=== PATIENT | male | born 1960 | race American Indian/Alaskan Native ===

== ENCOUNTER 2019-08-28 17:10 | Inpatient (IN) | payer BC, OTHER ==
[2019-08-28 18:16] LABS: Basophils % (Auto) 0.2 % (0.0-1.8); Eosinophils # (Auto) 0.1 K/mm3 (0.0-0.4); Eosinophils % (Auto) 0.9 % (0.0-4.3); Hematocrit 48.9 % (35.5-45.6); Hemoglobin 16.3 gm/dl (11.8-15.2); Lymphocytes # (Auto) 3.2 K/mm3 (1.2-5.4); Lymphocytes % (Auto) 30.1 % (13.4-35.0); Mean Corpuscular HGB Conc 33 % (32-34); Mean Corpuscular Volume 98 fl (84-94); Monocytes # (Auto) 1.4 K/mm3 (0.0-0.8); Monocytes % (Auto) 12.8 % (0.0-7.3); Platelet Count 190 K/mm3 (140-440); Red Blood Count 4.99 M/mm3 (3.65-5.03); Red Cell Distribution Width 12.8 % (13.2-15.2)
[2019-08-28 18:38] LABS: Albumin 4.3 g/dL (3.9-5); Calcium 9.5 mg/dL (8.4-10.2)
[2019-08-28 18:42] LABS: INR 1.15 (0.87-1.13)
[2019-08-28 18:43] LABS: Partial Thromboplastin Time 28.9 Sec. (24.2-36.6)
[2019-08-28] MEDS ORDERED: HEPARIN 10,000 UNITS/10 ML VIAL IV ONE (18:47)
--- NOTE | 2019-08-28 18:47 | Emergency Department Report ---
HPI - General Chief Complaint: Medical Clearance Time Seen by Provider: 08/28/19 17:42 - HPI HPI: Room 8 The patient is a 59-year-old male presenting with a chief complaint of shortness of breath. The patient states for the past had dyspnea on exertion. The patient saw his manager of broadcast content yesterday and turn referred the patient to a nonprofit director. This morning the patient states he became very short of breath after bending over. The patient states he then developed chest tightness. The patient went to his nonprofit director today (Dr Polo) who in turn performed an echocardiogram which showed a normal ejection fraction but a dilated right ventricle. The patient subsequent was sent to the ED to have a CT scan chest performed to rule out PE Dr. Polo states he plans on performed a cardiac catheterization in the morning. Location: [See above] Duration: [See above] Quality: [See above] Severity: [See above] Timing: [See above] Context: [See above] Modifying factors: [See above] Associated signs and symptoms: [see above] ED Past Medical Hx - Past Medical History Hx COPD: Yes Additional medical history: Sleep apnea - Surgical History Additional Surgical History: Hemorrhoidectomy, tonsilectomy, vasectomy - Family History Family history: no significant - Social History Smoking Status: Never Smoker Substance Use Type: Alcohol (occasional) ED Review of Systems ROS: Stated complaint: ABNORMAL EKG Other details as noted in HPI Constitutional: denies: fever Eyes: denies: eye pain ENT: denies: throat pain Respiratory: cough, shortness of breath, SOB with exertion Cardiovascular: chest pain Endocrine: no symptoms reported Genitourinary: denies: dysuria Musculoskeletal: denies: back pain Neurological: denies: headache Physical Exam - Physical Exam Vital Signs: Vital Signs 08/28/19 08/28/19 08/28/19 17:50 17:56 17:57 Temperature 97.7 F Pulse Rate 96 H 95 H Respiratory 29 H Rate Blood Pressure 149/99 Blood Pressure 149/99 [Right] O2 Sat by Pulse 92 98 Oximetry 08/28/19 18:25 Temperature Pulse Rate Respiratory Rate Blood Pressure Blood Pressure [Right] O2 Sat by Pulse 97 Oximetry Physical Exam: GENERAL: The patient is well-developed well-nourished male lying on stretcher not appearing to be in acute distress. [] HEENT: Normocephalic. Atraumatic. Extraocular motions are intact. Patient has moist mucous membranes. NECK: Supple. No meningitic signs are noted. There is no adenopathy noted. CHEST/LUNGS: Clear to auscultation. There is no respiratory distress noted. HEART/CARDIOVASCULAR: Regular. There is no tachycardia. There is no gallop rub or murmur. ABDOMEN: Abdomen is soft, nontender. Patient has normal bowel sounds. There is no abdominal distention. SKIN: There is no rash. There is no edema. There is no diaphoresis. NEURO: The patient is awake, alert, and oriented. The patient is cooperative. The patient has normal speech MUSCULOSKELETAL: There is no evidence of acute injury. ED Course Vital Signs 08/28/19 08/28/19 08/28/19 17:50 17:56 17:57 Temperature 97.7 F Pulse Rate 96 H 95 H Respiratory 29 H Rate Blood Pressure 149/99 Blood Pressure 149/99 [Right] O2 Sat by Pulse 92 98 Oximetry 08/28/19 18:25 Temperature Pulse Rate Respiratory Rate Blood Pressure Blood Pressure [Right] O2 Sat by Pulse 97 Oximetry ED Medical Decision Making - Lab Data Result diagrams: 08/28/19 18:06 08/28/19 18:06 Laboratory Tests 08/28/19 08/28/19 08/28/19 18:06 18:06 18:06 WBC 10.7 RBC 4.99 Hgb 16.3 H Hct 48.9 H MCV 98 H MCH 33 H MCHC 33 RDW 12.8 L Plt Count 190 Lymph % (Auto) 30.1 [place] % (Auto) 12.8 H Eos % (Auto) 0.9 Baso % (Auto) 0.2 Lymph # 3.2 [place] # 1.4 H Eos # 0.1 Baso # 0.0 Seg Neutrophils % 56.0 Seg Neutrophils # 6.0 PT 14.6 INR 1.15 H APTT 28.9 Sodium 138 Potassium 4.1 Chloride 102.0 Carbon Dioxide 22 Anion Gap 18 BUN 16 Creatinine 1.5 Estimated GFR 58 BUN/Creatinine Ratio 11 Glucose 105 H Calcium 9.5 Total Bilirubin 1.10 AST 21 ALT 21 Alkaline Phosphatase 92 Total Creatine Kinase 235 H CK-MB (CK-2) 4.0 CK-MB (CK-2) Rel Index 1.7 Troponin T 0.012 NT-Pro-B Natriuret Pep 3204 H Total Protein 8.0 Albumin 4.3 Albumin/Globulin Ratio 1.2 - EKG Data -: EKG Interpreted by Me EKG shows normal: sinus rhythm Rate: normal - EKG Data When compared to previous EKG there are: previous EKG unavailable Interpretation: nonspecific ST-T wave alessandro (T-wave inversions in leads 3 and aVF) - Differential Diagnosis ACS, CHF, PE Critical care attestation.: If time is entered above; I have spent that time in minutes in the direct care of this critically ill patient, excluding procedure time. ED Disposition Clinical Impression: Dyspnea on exertion, Bilateral pulmonary embolism Disposition: DC- OP ADMIT IP TO THIS HOSP Is pt being admited?: Yes Does the pt Need Aspirin: No Condition: Serious Time of Disposition: 19:42 (hospitalist paged (Dr Henry))
[2019-08-28] MEDS ORDERED: HEPARIN/ 0.45% NACL DRIP 25,000 UNIT/500 ML BAG IV SCH (19:00)
--- NOTE | 2019-08-28 19:42 | Cat Scan Report ---
CTA chest with contrast INDICATION : MAIN: dyspnea; 100 ML OF OMNI 350. TECHNIQUE: Axial imaging performed through the chest, with contrast bolus timing set to maximize opa cification of the pulmonary arteries. 3-plane MIP reformatted images were obtained. All CT scans at this location are performed using CT dose reduction for ALARA by means of automated exposure control. 100 mL of intravenous contrast administered. COMPARISON: None FINDINGS: Bolus: Contrast bolus timing is adequate. PTE: There is extensive thromboembolic disease in all 5 lobes of the lungs involving the segmental a nd subsegmental distribution is. There is also thrombus extension into both main pulmonary arteries. Mediastinum: There is mild flattening of the interventricular septum is slight dilatation of the rig ht ventricle suggesting pulmonary strain. Likewise there is reflux of contrast into the hepatic veins suggesting a component of systolic dysfunction. No pathologic mediastinal adenopathy. Lungs: Lungs are clear. Upper abdomen: Limited imaging of the upper abdomen shows nothing acute. Bones: Degenerative changes in the spine with nothing acute. IMPRESSION: Extensive PTE as above with evidence of heart strain. CRITICAL RESULT: Time of Discovery ([employer] ADVANCED OPERATOR MAINTAINER/CDT): 6:35 PM Time of Communication ([employer]AMARK ADVANCED OPERATOR MAINTAINER/CDT): 6:37 PM Licensed Practitioner Receiving Report: Dr. Webber Read Back Performed: Not applicable. Signer Name: Rigoberto Loza MD Signed: 08/28/2019 7:38 PM Workstation Name: [id number]
[2019-08-28] MEDS ORDERED: HYDROmorphone 1 MG/1 ML INJ IV PRN (21:31)
[2019-08-28] MEDS ORDERED: oxyCODONE /ACETAMINOPHEN 5-325MG TAB PO PRN (21:31)
[2019-08-28] MEDS ORDERED: ONDANSETRON 4 MG/2 ML INJ IV PRN (21:31)
[2019-08-28] MEDS ORDERED: ACETAMINOPHEN 325 MG TAB PO PRN (21:31)
--- NOTE | 2019-08-28 21:31 | History and Physical Report ---
History of Present Illness Date of examination: 08/28/19 Date of admission: 08/28/19 19:54 History of present illness: The patient is a 59-year-old male presenting with a chief complaint of shortness of breath. The patient states for the past had dyspnea on exertion. The patient saw his strategic procurement manager yesterday and turn referred the patient to a director of partner marketing. This morning the patient states he became very short of breath after bending over. The patient states he then developed chest tightness. The patient went to his director of partner marketing today (Dr Polo) who in turn performed an echocardiogram which showed a normal ejection fraction but a dilated right ventricle. The patient subsequent was sent to the ED to have a CT scan chest performed to rule out PE Dr. Polo states he plans on performed a cardiac catheterization in the morning. Location: [See above] Duration: [See above] Quality: [See above] Severity: [See above] Timing: [See above] Context: [See above] Modifying factors: [See above] Associated signs and symptoms: [see above] Past Medical History COPD: Yes Additional medical history: Sleep apnea Surgical History Additional Surgical History: Hemorrhoidectomy, tonsilectomy, vasectomy Family History Family history: no significant Social History Smoking Status: Never Smoker Substance Use Type: Alcohol (occasional) Review of Systems ROS: Stated complaint: ABNORMAL EKG Other details as noted in HPI Constitutional: denies: fever Eyes: denies: eye pain ENT: denies: throat pain Respiratory: cough, shortness of breath, SOB with exertion Cardiovascular: chest pain Endocrine: no symptoms reported Genitourinary: denies: dysuria Musculoskeletal: denies: back pain Neurological: denies: headache Medications and Allergies Allergies Allergy/AdvReac Type Severity Reaction Status Date / Time acetaminophen [From Percocet] Allergy Unknown Verified 08/28/19 17:22 NSAIDS (Non-Steroidal Allergy Unknown Verified 08/28/19 17:22 Anti-Inflamma oxycodone [From Percocet] Allergy Unknown Verified 08/28/19 17:22 Home Medications Medication Instructions Recorded Confirmed Last Taken Type No Known Home Medications [No 08/28/19 08/28/19 Unknown History Reported Home Medications] Active Meds: Active Medications Heparin Sodium/Sodium Chloride (Heparin/ 0.45% Nacl-25,000 Unit/500 Ml) 25,000 unit in 500 mls @ 20 mls/hr IV TITRATE CAROLYN; Protocol Last Admin: 08/28/19 20:02 Dose: 1,000 units/hr, 20 mls/hr Documented by: Exam - Constitutional Vitals: Temp Pulse Resp BP Pulse Ox 97.7 F 92 H 34 H 133/92 95 08/28/19 17:56 08/28/19 20:30 08/28/19 20:30 08/28/19 20:30 08/28/19 20:30 Results - Labs CBC & Chem 7: 08/28/19 18:06 08/28/19 18:06 Labs: Laboratory Last Values WBC 10.7 K/mm3 (4.5-11.0) 08/28/19 18:06 RBC 4.99 M/mm3 (3.65-5.03) 08/28/19 18:06 Hgb 16.3 gm/dl (11.8-15.2) H 08/28/19 18:06 Hct 48.9 % (35.5-45.6) H 08/28/19 18:06 MCV 98 fl (84-94) H 08/28/19 18:06 MCH 33 pg (28-32) H 08/28/19 18:06 MCHC 33 % (32-34) 08/28/19 18:06 RDW 12.8 % (13.2-15.2) L 08/28/19 18:06 Plt Count 190 K/mm3 (140-440) 08/28/19 18:06 Lymph % (Auto) 30.1 % (13.4-35.0) 08/28/19 18:06 [place] % (Auto) 12.8 % (0.0-7.3) H 08/28/19 18:06 Eos % (Auto) 0.9 % (0.0-4.3) 08/28/19 18:06 Baso % (Auto) 0.2 % (0.0-1.8) 08/28/19 18:06 Lymph # 3.2 K/mm3 (1.2-5.4) 08/28/19 18:06 [place] # 1.4 K/mm3 (0.0-0.8) H 08/28/19 18:06 Eos # 0.1 K/mm3 (0.0-0.4) 08/28/19 18:06 Baso # 0.0 K/mm3 (0.0-0.1) 08/28/19 18:06 Seg Neutrophils % 56.0 % (40.0-70.0) 08/28/19 18:06 Seg Neutrophils # 6.0 K/mm3 (1.8-7.7) 08/28/19 18:06 PT 14.6 Sec. (12.2-14.9) 08/28/19 18:06 INR 1.15 (0.87-1.13) H 08/28/19 18:06 APTT 28.9 Sec. (24.2-36.6) 08/28/19 18:06 Sodium 138 mmol/L (137-145) 08/28/19 18:06 Potassium 4.1 mmol/L (3.6-5.0) 08/28/19 18:06 Chloride 102.0 mmol/L (98-107) 08/28/19 18:06 Carbon Dioxide 22 mmol/L (22-30) 08/28/19 18:06 Anion Gap 18 mmol/L 08/28/19 18:06 BUN 16 mg/dL (9-20) 08/28/19 18:06 Creatinine 1.5 mg/dL (0.8-1.5) 08/28/19 18:06 Estimated GFR 58 ml/min 08/28/19 18:06 BUN/Creatinine Ratio 11 % 08/28/19 18:06 Glucose 105 mg/dL (75-100) H 08/28/19 18:06 Calcium 9.5 mg/dL (8.4-10.2) 08/28/19 18:06 Total Bilirubin 1.10 mg/dL (0.1-1.2) 08/28/19 18:06 AST 21 units/L (5-40) 08/28/19 18:06 ALT 21 units/L (7-56) 08/28/19 18:06 Alkaline Phosphatase 92 units/L (35-129) 08/28/19 18:06 Total Creatine Kinase 235 units/L (55-170) H 08/28/19 18:06 CK-MB (CK-2) 4.0 ng/mL (0.0-4.0) 08/28/19 18:06 CK-MB (CK-2) Rel Index 1.7 (0-4) 08/28/19 18:06 Troponin T 0.012 ng/mL (0.00-0.029) 08/28/19 18:06 NT-Pro-B Natriuret Pep 3204 pg/mL (0-900) H 08/28/19 18:06 Total Protein 8.0 g/dL (6.3-8.2) 08/28/19 18:06 Albumin 4.3 g/dL (3.9-5) 08/28/19 18:06 Albumin/Globulin Ratio 1.2 % 08/28/19 18:06
[2019-08-28] MEDS ORDERED: IPRATROPIUM/ALBUTEROL SULFATE 3 ML AMPUL.NEB IH PRN (21:36)
[2019-08-28 22:03] LABS: Hematocrit 47.3 % (35.5-45.6); Hemoglobin 15.8 gm/dl (11.8-15.2)
[2019-08-28] MEDS ORDERED: ALBUTEROL 2.5 MG/3 ML NEBU IH PRN (22:05)
[2019-08-28 22:15] LABS: INR 1.16 (0.87-1.13)
[2019-08-28 22:25] LABS: Partial Thromboplastin Time 81.3 Sec. (24.2-36.6)
[2019-08-28] MEDS: FAMOTIDINE 20 MG/2 ML INJ IV SCH (23:00)
[2019-08-29 02:59] LABS: Basophils % (Auto) 0.3 % (0.0-1.8); Eosinophils # (Auto) 0.2 K/mm3 (0.0-0.4); Eosinophils % (Auto) 2.2 % (0.0-4.3); Hematocrit 47.2 % (35.5-45.6); Hemoglobin 15.8 gm/dl (11.8-15.2); Lymphocytes # (Auto) 3.2 K/mm3 (1.2-5.4); Lymphocytes % (Auto) 30.3 % (13.4-35.0); Mean Corpuscular HGB Conc 34 % (32-34); Mean Corpuscular Volume 97 fl (84-94); Monocytes # (Auto) 1.3 K/mm3 (0.0-0.8); Monocytes % (Auto) 11.9 % (0.0-7.3); Platelet Count 162 K/mm3 (140-440); Red Blood Count 4.85 M/mm3 (3.65-5.03); Red Cell Distribution Width 12.8 % (13.2-15.2)
[2019-08-29 03:14] LABS: Albumin 3.9 g/dL (3.9-5); Calcium 9.3 mg/dL (8.4-10.2)
[2019-08-29] MEDS: FAMOTIDINE 20 MG/2 ML INJ IV SCH ×3 (06:09→21:12)
--- NOTE | 2019-08-29 07:03 | Event Note ---
Date: 08/28/19 See reports in H/p Acute PE COPD Sleep Apnea
--- NOTE | 2019-08-29 07:32 | History and Physical Report ---
CHIEF COMPLAINT: Shortness of breath since yesterday. HISTORY OF PRESENT ILLNESS: A 59-year-old male with history of COPD and sleep apnea, comes in for shortness of breath and dyspnea on exertion for the last 48 hours to 24 hours. The patient became very short of breath today and developed chest tightness. He went to rug cleaning supervisor who performed an echocardiogram, which showed a normal ejection fraction, but dilated right ventricle. The patient was sent to the ED to have a CTA of the chest to rule out PE. The patient is scheduled for a cardiac catheterization tomorrow morning. PAST MEDICAL HISTORY: COPD, sleep apnea. PAST SURGICAL HISTORY: Hemorrhoidectomy, tonsillectomy and vasectomy. FAMILY HISTORY: Hypertension. SOCIAL HISTORY: Does not smoke, exposure to secondhand smoking. Occasional alcohol. Worked in the [employer] for 21 years. REVIEW OF SYSTEMS: Significant for shortness of breath on minimal exertion and chest tightness. No orthopnea. No leg pains or leg swelling. Otherwise, review of systems negative. PHYSICAL EXAMINATION: GENERAL: Young elderly male, cooperative during examination. VITAL SIGNS: Temperature 98, pulse is 79, respiratory rate 25, blood pressure is 112/79, sats are 97%. HEENT: Unremarkable. Pupils equal and reactive. NECK: Supple, no lymphadenopathy, no thyromegaly. LUNGS: Clear to auscultation and percussion. Good air entry. CARDIOVASCULAR SYSTEM: S1, S2 heard. No gallop, no murmur, no rub. Apical impulse in left fifth intercostal space and midclavicular line. ABDOMEN: Soft and benign. No hepatosplenomegaly. No guarding, no rigidity. Hernial orifices are normal. EXTREMITIES: Good pedal pulses. No pedal edema. SKIN: Normal. LABORATORY DATA: Significant for white count of 10,700, H and H of 16.3 and 48.9, platelet count of 190,000. Protime of 14.6, normal electrolytes. BNP 3204. Chest CTA shows extensive pulmonary emboli with evidence of heart strain. There is mild flattening of the interventricular septum. ASSESSMENT AND PLAN: 1. Acute pulmonary embolism. The patient had a right ventricular strain. Vascular Surgery/Intervention Radiology consult requested. The patient started on IV heparin as per protocol. 2. Chronic obstructive pulmonary disease. DuoNebs p.r.n. 3. Sleep apnea, on BiPAP. 4. Deep venous thrombosis prophylaxis. The patient is already on IV heparin and gastrointestinal prophylaxis. Critical care time is 32 minutes. JOB# [id number] CAMILLA/LEANN YUAN
--- NOTE | 2019-08-29 10:10 | Consultation ---
History of Present Illness Consult date: 08/29/19 Consult reason: shortness of breath History of present illness: 59 year old male admitted from cardiology office with abnormal ECG changes, and shortness of breath. Echo done in office revealed a dilated RV. CT chest in the ER was positive for bilateral emboli. Patient denies history of VTE, recent surgery, recent travel or immobilization. Patient is currently in bed, comfortable with no complaints of SOB. Medications and Allergies Allergies Allergy/AdvReac Type Severity Reaction Status Date / Time No Known Allergies Allergy Verified 08/29/19 09:35 Home Medications Medication Instructions Recorded Confirmed Last Taken Type No Known Home Medications [No 08/28/19 08/28/19 Unknown History Reported Home Medications] Active Meds: Active Medications Acetaminophen (Tylenol) 650 mg PO Q4H PRN PRN Reason: Pain MILD(1-3)/Fever >100.5/STRAUSS Albuterol (Proventil) 2.5 mg IH Q3HRT PRN PRN Reason: Shortness Of Breath Albuterol/Ipratropium (Duoneb *Not For Prn Use*) 1 ampul IH Q3H PRN PRN Reason: Wheezing Famotidine (Pepcid) 20 mg IV BID [facility] Last Admin: 08/29/19 09:55 Dose: 20 mg Documented by: Hydromorphone HCl (Dilaudid) 0.5 mg IV Q3H PRN PRN Reason: Pain , Severe (7-10) Heparin Sodium/Sodium Chloride (Heparin/ 0.45% Nacl-25,000 Unit/500 Ml) 25,000 unit in 500 mls @ 20 mls/hr IV TITRATE CAROLYN; Protocol Last Titration: 08/29/19 09:28 Dose: 1,350 units/hr, 27 mls/hr Documented by: Ondansetron HCl (Zofran) 4 mg IV Q8H PRN PRN Reason: Nausea And Vomiting Oxycodone/Acetaminophen (Percocet 5/325) 1 tab PO Q6H PRN PRN Reason: Pain, Moderate (4-6) Sodium Chloride (Sodium Chloride Flush Syringe 10 Ml) 10 ml IV BID CAROLYN Last Admin: 08/29/19 09:55 Dose: 10 ml Documented by: Sodium Chloride (Sodium Chloride Flush Syringe 10 Ml) 10 ml IV PRN PRN PRN Reason: LINE FLUSH Review of Systems All systems: negative Physical Examination Vital Signs Pulse Ox 92 08/28/19 17:50 General appearance: no acute distress HEENT: Positive: PERRL Neck: Positive: neck supple Cardiac: Positive: Reg Rate and Rhythm Lungs: Positive: Normal Exam Results 08/29/19 02:20 08/29/19 02:20 Cardiac Enzymes 08/28/19 08/29/19 Range/Units 18:06 02:20 AST 21 17 (5-40) units/L CK-MB (CK-2) 4.0 (0.0-4.0) ng/mL Coagulation 08/28/19 08/28/19 Range/Units 18:06 21:50 PT 14.6 14.7 (12.2-14.9) Sec. INR 1.15 H 1.16 H (0.87-1.13) APTT 28.9 81.3 H* (24.2-36.6) Sec. CBC 08/28/19 08/28/19 08/29/19 Range/Units 18:06 21:50 02:20 WBC 10.7 10.7 (4.5-11.0) K/mm3 RBC 4.99 4.85 (3.65-5.03) M/mm3 Hgb 16.3 H 15.8 H 15.8 H (11.8-15.2) gm/dl Hct 48.9 H 47.3 H 47.2 H (35.5-45.6) % Plt Count 190 170 162 (140-440) K/mm3 Lymph # 3.2 3.2 (1.2-5.4) K/mm3 [place] # 1.4 H 1.3 H (0.0-0.8) K/mm3 Eos # 0.1 0.2 (0.0-0.4) K/mm3 Baso # 0.0 0.0 (0.0-0.1) K/mm3 Comprehensive Metabolic Panel 08/28/19 08/29/19 Range/Units 18:06 02:20 Sodium 138 140 (137-145) mmol/L Potassium 4.1 4.6 (3.6-5.0) mmol/L Chloride 102.0 103.2 (98-107) mmol/L Carbon Dioxide 22 22 (22-30) mmol/L BUN 16 15 (9-20) mg/dL Creatinine 1.5 1.5 (0.8-1.5) mg/dL Glucose 105 H 106 H (75-100) mg/dL Calcium 9.5 9.3 (8.4-10.2) mg/dL AST 21 17 (5-40) units/L ALT 21 16 (7-56) units/L Alkaline Phosphatase 92 83 (35-129) units/L Total Protein 8.0 7.4 (6.3-8.2) g/dL Albumin 4.3 3.9 (3.9-5) g/dL - EKG Interpretation EKG: sinus rhythm EKG interpretations - Telemetry EKG Rhythm: Sinus Rhythm Assessment and Plan Unprovoked bilateral pulmonary emboli with evidence of RV strain by CT and echo Hemodynamically stable Continue IV heparin for the time being Awaiting vascular/interventional radiology evaluation for possible need of catheter directed thrombolytics Obtain venous LE doppler to exclude DVT
[2019-08-29] MEDS ORDERED: SODIUM CHLORIDE 0.9% 1000 ML 1,000 ML EKOSCLUMEN SCH ×3 (11:00)
[2019-08-29] MEDS ORDERED: SODIUM CHLORIDE 0.9% 1000 ML 1,000 ML SHEATH SCH ×3 (11:00→12:00)
[2019-08-29] MEDS ORDERED: HEPARIN/ 0.45% NACL DRIP 25,000 UNIT/500 ML BAG SHEATH SCH ×3 (11:00)
[2019-08-29] MEDS ORDERED: SODIUM CHLORIDE 0.9% 1000 ML 1,000 ML IV SCH (11:00)
[2019-08-29 11:11] LABS: Basophils % (Auto) 0.4 % (0.0-1.8); Eosinophils # (Auto) 0.2 K/mm3 (0.0-0.4); Eosinophils % (Auto) 2.1 % (0.0-4.3); Hematocrit 46.8 % (35.5-45.6); Hemoglobin 15.7 gm/dl (11.8-15.2); Lymphocytes # (Auto) 2.7 K/mm3 (1.2-5.4); Lymphocytes % (Auto) 30.2 % (13.4-35.0); Mean Corpuscular HGB Conc 33 % (32-34); Mean Corpuscular Volume 98 fl (84-94); Monocytes # (Auto) 1.1 K/mm3 (0.0-0.8); Monocytes % (Auto) 12.9 % (0.0-7.3); Platelet Count 170 K/mm3 (140-440); Red Blood Count 4.79 M/mm3 (3.65-5.03); Red Cell Distribution Width 12.8 % (13.2-15.2)
[2019-08-29 11:22] LABS: INR 1.11 (0.87-1.13)
[2019-08-29 11:23] LABS: Partial Thromboplastin Time 50.3 Sec. (24.2-36.6)
[2019-08-29] MEDS ORDERED: HEPARIN/NS 5000 UNIT/500ML 1,000 ML IR ONE (11:28)
[2019-08-29] MEDS ORDERED: LIDOCAINE (2%) 20 MG/1 ML VIAL 20 ML MDV INFILTRATI ONE (11:28)
[2019-08-29] MEDS ORDERED: HEPARIN 10,000 UNITS/10 ML VIAL ONE (11:28)
[2019-08-29 11:33] LABS: BUN/Creatinine Ratio 10; Blood Urea Nitrogen 14 mg/dL (9-20); Calcium 9.2 mg/dL (8.4-10.2); Hemolysis Index 6
[2019-08-29] MEDS ORDERED: WATER FOR INJ Sterile (PF) 10 ML ONE (11:54)
[2019-08-29] MEDS ORDERED: MIDAZOLAM 2 MG/2 ML INJ ONE (11:54)
[2019-08-29] MEDS ORDERED: fentaNYL 100 MCG/2 ML INJ ONE (11:55)
[2019-08-29] MEDS ORDERED: ALTEPLASE 20 MG in SODIUM CHLORIDE 0.9% 500 ML 500 ML EKOSDLUMEN SCH (12:00)
[2019-08-29] MEDS ORDERED: ALTEPLASE 10 MG in SODIUM CHLORIDE 0.9% 250ML 250 ML EKOSDLUMEN SCH ×2 (12:00→12:30)
[2019-08-29] MEDS ORDERED: ALTEPLASE 2 MG INJ ONE (12:19)
[2019-08-29] MEDS ORDERED: ALTEPLASE 10 MG in SODIUM CHLORIDE 0.9% 250ML 250 ML IV SCH (12:30)
[2019-08-29] MEDS: ALTEPLASE 2 MG INJ ONE ×2 (12:44→12:45)
[2019-08-29] MEDS ORDERED: ONDANSETRON 4 MG/2 ML INJ IV PRN (12:52)
[2019-08-29] MEDS ORDERED: HYDROcodone/ACETAMINOPHEN 5-325 MG TAB PO PRN (12:52)
--- NOTE | 2019-08-29 13:11 | Consultation ---
History of Present Illness - Reason for Consult Consult date: 08/29/19 Bilateral Pulmonary Emboli With Evidence of Right Heart Strain Requesting physician: ADONIS MONTGOMERY - History of Present Illness She is a 59-year-old male who states that he began having shortness of breath approximately 3 weeks ago. He states that over the 3 weeks his shortness of breath became progressively worse. He states that his breathing made his walking distance becomes shorter and shorter. His PCP referred him to a refrigeration repair supervisor who obtained a EKG that was abnormal and therefore referred him to Dr. Polo. Upon his evaluation he was concerned for pulmonary embolus and sent him immediately to the emergency department where he underwent a CTA of his chest that confirmed bilateral pulmonary emboli. His workup also revealed a dilated right ventricle and evidence of right heart strain. My evaluation the patient is laying in bed and denies shortness of breath at rest. He denies any recent surgery or long trips. He denies a history of previous DVT or known family history of DVT. He denies a history of recent trauma, hematochezia, bright red blood per stool, recent weight loss, or coughing up any blood. He has no additional complaints at this time. Past History Past Medical History: No medical history Past Surgical History: tonsillectomy, Other (vasectomy, tonsillectomy) Social history: no significant social history Family history: no significant family history Medications and Allergies Allergies Allergy/AdvReac Type Severity Reaction Status Date / Time No Known Allergies Allergy Verified 08/29/19 09:35 Home Medications Medication Instructions Recorded Confirmed Last Taken Type No Known Home Medications [No 08/28/19 08/28/19 Unknown History Reported Home Medications] Active Meds: Active Medications Acetaminophen (Tylenol) 650 mg PO Q4H PRN PRN Reason: Pain MILD(1-3)/Fever >100.5/STRAUSS Acetaminophen/Hydrocodone Bitart ([place] 5/325) 2 each PO Q6H PRN PRN Reason: Pain, Moderate (4-6) Albuterol (Proventil) 2.5 mg IH Q3HRT PRN PRN Reason: Shortness Of Breath Famotidine (Pepcid) 20 mg IV BID CAROLYN Last Admin: 08/29/19 09:55 Dose: 20 mg Documented by: Sodium Chloride (Nacl 0.9% 1000 Ml) 1,000 mls @ 30 mls/hr IV DIRECT CAROLYN Alteplase, Recombinant 10 mg/ (Sodium Chloride) 250 mls @ 10 mls/hr EKOSDLUMEN DIRECT CAROLYN Sodium Chloride (Nacl 0.9% 1000 Ml) 1,000 mls @ 35 mls/hr EKOSCLUMEN DIRECT CAROLYN Sodium Chloride (Nacl 0.9% 1000 Ml) 1,000 mls @ 30 mls/hr SHEATH DIRECT CAROLYN Sodium Chloride (Nacl 0.9% 1000 Ml) 1,000 mls @ 35 mls/hr EKOSCLUMEN DIRECT CAROLYN Heparin Sodium/Sodium Chloride (Heparin/ 0.45% Nacl-25,000 Unit/500 Ml) 25,000 unit in 500 mls @ 10 mls/hr SHEATH DIRECT CAROLYN; Protocol Heparin Sodium/Sodium Chloride (Heparin/ 0.45% Nacl-25,000 Unit/500 Ml) 25,000 unit in 500 mls @ 10 mls/hr SHEATH DIRECT CAROLYN; Protocol Alteplase, Recombinant 10 mg/ (Sodium Chloride) 250 mls @ 10 mls/hr EKOSDLUMEN DIRECT CAROLYN Morphine Sulfate (Morphine) 4 mg IV Q4H PRN PRN Reason: Pain , Severe (7-10) Morphine Sulfate (Morphine) 2 mg IV Q4H PRN PRN Reason: Pain, Moderate (4-6) Ondansetron HCl (Zofran) 4 mg IV Q8H PRN PRN Reason: Nausea And Vomiting Sodium Chloride (Sodium Chloride Flush Syringe 10 Ml) 10 ml IV BID CAROLYN Last Admin: 08/29/19 09:55 Dose: 10 ml Documented by: Sodium Chloride (Sodium Chloride Flush Syringe 10 Ml) 10 ml IV PRN PRN PRN Reason: LINE FLUSH Review of Systems All systems: negative Exam - Constitutional Vitals: Temp Pulse Resp BP Pulse Ox 97.9 F 77 24 125/92 97 08/29/19 12:00 08/29/19 11:00 08/29/19 12:00 08/29/19 11:00 08/29/19 12:00 General appearance: Present: no acute distress - Neck Neck: Present: supple - Respiratory Respiratory effort: normal, other (nasal cannula in place) - Cardiovascular Rhythm: regular - Extremities Extremities: no ischemia, pulses intact, No edema Peripheral Pulses: within normal limits - Abdominal General gastrointestinal: Present: soft, non-tender, non-distended - Rectal Rectal Exam: deferred - Integumentary Integumentary: Present: clear - Musculoskeletal Musculoskeletal: strength equal bilaterally Results - Labs CBC & Chem 7: 08/29/19 10:45 08/29/19 10:45 Labs: Abnormal lab results 08/28/19 08/28/19 08/28/19 Range/Units 18:06 18:06 18:06 Hgb 16.3 H (11.8-15.2) gm/dl Hct 48.9 H (35.5-45.6) % MCV 98 H (84-94) fl MCH 33 H (28-32) pg RDW 12.8 L (13.2-15.2) % [place] % (Auto) 12.8 H (0.0-7.3) % [place] # 1.4 H (0.0-0.8) K/mm3 INR 1.15 H (0.87-1.13) APTT (24.2-36.6) Sec. Heparin Anti-Xa Level (0.3-0.7) U.I./ml Carbon Dioxide (22-30) mmol/L Glucose 105 H (75-100) mg/dL Total Bilirubin (0.1-1.2) mg/dL Total Creatine Kinase 235 H (55-170) units/L NT-Pro-B Natriuret Pep 3204 H (0-900) pg/mL 08/28/19 08/28/19 08/29/19 Range/Units 21:50 21:50 02:20 Hgb 15.8 H 15.8 H (11.8-15.2) gm/dl Hct 47.3 H 47.2 H (35.5-45.6) % MCV 97 H (84-94) fl MCH 33 H (28-32) pg RDW 12.8 L (13.2-15.2) % [place] % (Auto) 11.9 H (0.0-7.3) % [place] # 1.3 H (0.0-0.8) K/mm3 INR 1.16 H (0.87-1.13) APTT 81.3 H* (24.2-36.6) Sec. Heparin Anti-Xa Level (0.3-0.7) U.I./ml Carbon Dioxide (22-30) mmol/L Glucose (75-100) mg/dL Total Bilirubin (0.1-1.2) mg/dL Total Creatine Kinase (55-170) units/L NT-Pro-B Natriuret Pep (0-900) pg/mL 08/29/19 08/29/19 08/29/19 Range/Units 02:20 02:20 08:04 Hgb (11.8-15.2) gm/dl Hct (35.5-45.6) % MCV (84-94) fl MCH (28-32) pg RDW (13.2-15.2) % [place] % (Auto) (0.0-7.3) % [place] # (0.0-0.8) K/mm3 INR (0.87-1.13) APTT (24.2-36.6) Sec. Heparin Anti-Xa Level 0.20 L 0.23 L (0.3-0.7) U.I./ml Carbon Dioxide (22-30) mmol/L Glucose 106 H (75-100) mg/dL Total Bilirubin 1.50 H (0.1-1.2) mg/dL Total Creatine Kinase (55-170) units/L NT-Pro-B Natriuret Pep (0-900) pg/mL 08/29/19 08/29/19 08/29/19 Range/Units 10:45 10:45 10:45 Hgb 15.7 H (11.8-15.2) gm/dl Hct 46.8 H (35.5-45.6) % MCV 98 H (84-94) fl MCH 33 H (28-32) pg RDW 12.8 L (13.2-15.2) % [place] % (Auto) 12.9 H (0.0-7.3) % [place] # 1.1 H (0.0-0.8) K/mm3 INR (0.87-1.13) APTT 50.3 H (24.2-36.6) Sec. Heparin Anti-Xa Level (0.3-0.7) U.I./ml Carbon Dioxide 21 L (22-30) mmol/L Glucose (75-100) mg/dL Total Bilirubin (0.1-1.2) mg/dL Total Creatine Kinase (55-170) units/L NT-Pro-B Natriuret Pep (0-900) pg/mL - Imaging and Cardiology CT scan - chest: image reviewed Assessment and Plan The patient is a 59-year-old male who presented with bilateral pulmonary emboli and evidence of right heart strain. By history this appears to be an unprovoked pulmonary embolus. Given the CT scan findings in the evidence of right heart strain and no contraindication to thrombolysis the patient is a candidate for pulmonary artery thrombolysis. I have discussed the risk, benefits, and alternative procedures and he has agreed to the procedure. Additionally should have a venous duplex of his lower extremity to rule out a DVT. He should also have a hypercoagulable workup to determine the time course of his anticoagulation treatment. I discussed this with the patient as well as his . We'll proceed with placement of bilateral pulmonary artery catheters for thrombolysis.
--- NOTE | 2019-08-29 13:17 | Operative Report ---
Operative Report Operative Report: Date of Procedure: 08/29/2019 Pre-operative Diagnosis: Bilateral Pulmonary Emboli with Right Heart Strain Post-operative Diagnosis: Strain Procedure(s): 1. Ultrasound Guided Access Right Femoral Vein 2. Ultrasound Guided Access Right Femoral Vein 3. Nonselective Pulmonary Artery Arteriogram 4. Inferior Vena CavaGram 5. Placement of 106 x 12 EKOS Thrombolysis Catheter in Left Pulmonary Artery 6. Placement of 106 x 12 EKOS Thrombolysis Catheter in Right Pulmonary Artery 7. Radiologic Supervision with Interpretation Surgeon: Fan Tyler M.D. Tool And Die Supervisor: None Anesthesia: Local & Moderate Monitored Sedation EBL: Minimal Counts: Correct Complications: None Condition: Stable Specimen: None Indication: The patient is a 59-year-old male who presented to his taproom attendant with complaints of shortness of breath that progressively worsened over the past 3 weeks. He was referred to his storage consultant who suspected a pulmonary embolus and sent him to the emergency department where he had a CTA of his chest that confirmed the finding of bilateral pulmonary emboli with right heart strain. He is in need of a diagnostic pulmonary angiogram and pulmonary artery thrombolysis. He was given the risk, benefits, and alternative procedures and consented to the procedure. Angiographic Findings: The inferior venacavogram revealed a normal caliber inferior vena cava without evidence of thrombus.The nonselective pulmonary angiogram revealed bilateral nonocclusive pulmonary emboli in the right and left main pulmonary arteries. Once catheters were placed in the respective pulmonary arteries pulmonary angiograms performed through the catheters to confirm position revealed segmental pulmonary emboli bilaterally. Bilateral EKOS thrombolysis catheters were placed in adequate position without evidence of hemorrhage or pneumothorax. Description of Procedure: The patient was brought to the [facility] and laid in supine position. After a timeout was performed his bilateral groins were prepped and draped in normal sterile fashion. Ultrasound was used to identify the right common femoral vein and confirm patency. Once patency was confirmed the overlying skin and soft tissue was anesthetized with lidocaine. 2 small stab incisions were created with an 11 blade and micropuncture technique was used to access the vein twice using ultrasound guidance. Two 6 [place] sheaths were then placed by Seldinger technique. A hand injected inferior venacavogram was performed there revealed a normal caliber inferior vena cava without evidence of thrombus. A 0.035 Bentson wire and 6 [place] JR4 catheter were advanced up through the inferior vena cava and into the right atrium and right ventricle and eventually into the main pulmonary artery. The JR4 was exchanged for a pigtail catheter and a nonselective pulmonary angiogram was performed with the previously described findings. The Bentson wire was reinserted into the pigtail and then advanced into the left main pulmonary artery and out into the periphery. The pigtail catheter was removed leaving the wire in place and the EKOS thrombolysis catheter was advanced into position and an arteriogram confirmed the position as well as evidence of emboli in the segmental pulmonary arteries. I removed the wire and advanced the ultrasound wire into position. I then advanced the Bentson wire into the second 6 [place] sheath along with the JR4 catheter and advanced the wire catheter through the atrium and right ventricle into the right pulmonary artery. I removed the JR4 catheter and advanced the EKOS catheter into position. I remove the wire and performed an angiogram to confirm position. I advanced the ultrasound wire into position. I primed both coolant ports with 3000 units of heparin respectively. Both drug ports were primed with 4 mg of TPA respectively. Both 6 [place] sheath were then primed with 2000 units of heparin respectively. The sheaths and catheters were then secured to the patient with 0 silks and then dressed with sterile dressings. The patient tolerated the procedure well. All sponge, needle, and instrument counts were correct. The patient was transported to the ICU in stable condition.
--- NOTE | 2019-08-29 13:26 | Consultation ---
History of Present Illness Consult date: 08/29/19 Requesting physician: SARAH DIETZ Reason for consult: pulmonary embolism History of present illness: Patient admitted with PE, down stairs now for EKOS procedure. Found via Echo done as outpatient which showed dilated RV Medications and Allergies Allergies Allergy/AdvReac Type Severity Reaction Status Date / Time No Known Allergies Allergy Verified 08/29/19 09:35 Home Medications Medication Instructions Recorded Confirmed Last Taken Type No Known Home Medications [No 08/28/19 08/28/19 Unknown History Reported Home Medications] Active Meds: Active Medications Acetaminophen (Tylenol) 650 mg PO Q4H PRN PRN Reason: Pain MILD(1-3)/Fever >100.5/STRAUSS Acetaminophen/Hydrocodone Bitart ([place] 5/325) 2 each PO Q6H PRN PRN Reason: Pain, Moderate (4-6) Albuterol (Proventil) 2.5 mg IH Q3HRT PRN PRN Reason: Shortness Of Breath Famotidine (Pepcid) 20 mg IV BID CAROLYN Last Admin: 08/29/19 09:55 Dose: 20 mg Documented by: Sodium Chloride (Nacl 0.9% 1000 Ml) 1,000 mls @ 30 mls/hr IV DIRECT CAROLYN Alteplase, Recombinant 10 mg/ (Sodium Chloride) 250 mls @ 10 mls/hr EKOSDLUMEN DIRECT CAROLYN Sodium Chloride (Nacl 0.9% 1000 Ml) 1,000 mls @ 35 mls/hr EKOSCLUMEN DIRECT CAROLYN Sodium Chloride (Nacl 0.9% 1000 Ml) 1,000 mls @ 30 mls/hr SHEATH DIRECT CAROLYN Sodium Chloride (Nacl 0.9% 1000 Ml) 1,000 mls @ 35 mls/hr EKOSCLUMEN DIRECT CAROLYN Heparin Sodium/Sodium Chloride (Heparin/ 0.45% Nacl-25,000 Unit/500 Ml) 25,000 unit in 500 mls @ 10 mls/hr SHEATH DIRECT CAROLYN; Protocol Heparin Sodium/Sodium Chloride (Heparin/ 0.45% Nacl-25,000 Unit/500 Ml) 25,000 unit in 500 mls @ 10 mls/hr SHEATH DIRECT CAROLYN; Protocol Alteplase, Recombinant 10 mg/ (Sodium Chloride) 250 mls @ 10 mls/hr EKOSDLUMEN DIRECT CAROLYN Morphine Sulfate (Morphine) 4 mg IV Q4H PRN PRN Reason: Pain , Severe (7-10) Morphine Sulfate (Morphine) 2 mg IV Q4H PRN PRN Reason: Pain, Moderate (4-6) Ondansetron HCl (Zofran) 4 mg IV Q8H PRN PRN Reason: Nausea And Vomiting Sodium Chloride (Sodium Chloride Flush Syringe 10 Ml) 10 ml IV BID CAROLYN Last Admin: 08/29/19 09:55 Dose: 10 ml Documented by: Sodium Chloride (Sodium Chloride Flush Syringe 10 Ml) 10 ml IV PRN PRN PRN Reason: LINE FLUSH Physical Examination Vital signs: Vital Signs Pulse Ox 92 08/28/19 17:50 Results - Laboratory Findings CBC and BMP: 08/29/19 10:45 08/29/19 10:45 PT/INR, D-dimer PT 14.2 Sec. (12.2-14.9) 08/29/19 10:45 INR 1.11 (0.87-1.13) 08/29/19 10:45 Abnormal lab findings: Abnormal Labs 08/28/19 08/28/19 08/28/19 18:06 18:06 18:06 Hgb 16.3 H Hct 48.9 H MCV 98 H MCH 33 H RDW 12.8 L [place] % (Auto) 12.8 H [place] # 1.4 H INR 1.15 H APTT Heparin Anti-Xa Level Carbon Dioxide Glucose 105 H Total Bilirubin Total Creatine Kinase 235 H NT-Pro-B Natriuret Pep 3204 H 08/28/19 08/28/19 08/29/19 21:50 21:50 02:20 Hgb 15.8 H 15.8 H Hct 47.3 H 47.2 H MCV 97 H MCH 33 H RDW 12.8 L [place] % (Auto) 11.9 H [place] # 1.3 H INR 1.16 H APTT 81.3 H* Heparin Anti-Xa Level Carbon Dioxide Glucose Total Bilirubin Total Creatine Kinase NT-Pro-B Natriuret Pep 08/29/19 08/29/19 08/29/19 02:20 02:20 08:04 Hgb Hct MCV MCH RDW [place] % (Auto) [place] # INR APTT Heparin Anti-Xa Level 0.20 L 0.23 L Carbon Dioxide Glucose 106 H Total Bilirubin 1.50 H Total Creatine Kinase NT-Pro-B Natriuret Pep 08/29/19 08/29/19 08/29/19 10:45 10:45 10:45 Hgb 15.7 H Hct 46.8 H MCV 98 H MCH 33 H RDW 12.8 L [place] % (Auto) 12.9 H [place] # 1.1 H INR APTT 50.3 H Heparin Anti-Xa Level Carbon Dioxide 21 L Glucose Total Bilirubin Total Creatine Kinase NT-Pro-B Natriuret Pep
--- NOTE | 2019-08-29 13:35 | Progress Note ---
Assessment and Plan Assessment and plan: Bilateral PE with right ventricular strain - Patient is on IV heparin drip - Vascular surgery consulted and will do thrombolysis Cardiology consulted - Echo showed dilated right ventricle Disposition; continue ICU care after thrombolysis. History Interval history: Patient was seen and evaluated this morning, patient didn't have any complaints. No shortness of breath is or chest pain. Hospitalist Physical - Physical exam Narrative exam: Not in cardiopulmonary distress. The patient appeared well nourished and normally developed. Vital signs as documented. Head exam is unremarkable. No scleral icterus . Neck is without jugular venous distension, thyromegaly, or carotid bruits. Lungs are clear to auscultation. Cardiac exam reveals regular rate and Rhythm. First and second heart sounds normal. No murmurs, rubs or gallops. Abdominal exam reveals normal bowel sounds, no masses, no organomegaly and no aortic enlargement. Extremities are nonedematous and both femoral and pedal pulses are normal. ULTRASOUND MANAGER: Alert and oriented 3. No focal weakness. - Constitutional Vitals: Temp Pulse Resp BP Pulse Ox 97.9 F 77 24 125/92 97 08/29/19 12:00 08/29/19 11:00 08/29/19 12:00 08/29/19 11:00 08/29/19 12:00 General appearance: Present: no acute distress Results - Labs CBC & Chem 7: 08/29/19 10:45 08/29/19 10:45 Labs: Laboratory Last Values WBC 8.9 K/mm3 (4.5-11.0) 08/29/19 10:45 RBC 4.79 M/mm3 (3.65-5.03) 08/29/19 10:45 Hgb 15.7 gm/dl (11.8-15.2) H 08/29/19 10:45 Hct 46.8 % (35.5-45.6) H 08/29/19 10:45 MCV 98 fl (84-94) H 08/29/19 10:45 MCH 33 pg (28-32) H 08/29/19 10:45 MCHC 33 % (32-34) 08/29/19 10:45 RDW 12.8 % (13.2-15.2) L 08/29/19 10:45 Plt Count 170 K/mm3 (140-440) 08/29/19 10:45 Lymph % (Auto) 30.2 % (13.4-35.0) 08/29/19 10:45 [place] % (Auto) 12.9 % (0.0-7.3) H 08/29/19 10:45 Eos % (Auto) 2.1 % (0.0-4.3) 08/29/19 10:45 Baso % (Auto) 0.4 % (0.0-1.8) 08/29/19 10:45 Lymph # 2.7 K/mm3 (1.2-5.4) 08/29/19 10:45 [place] # 1.1 K/mm3 (0.0-0.8) H 08/29/19 10:45 Eos # 0.2 K/mm3 (0.0-0.4) 08/29/19 10:45 Baso # 0.0 K/mm3 (0.0-0.1) 08/29/19 10:45 Seg Neutrophils % 54.4 % (40.0-70.0) 08/29/19 10:45 Seg Neutrophils # 4.8 K/mm3 (1.8-7.7) 08/29/19 10:45 PT 14.2 Sec. (12.2-14.9) 08/29/19 10:45 INR 1.11 (0.87-1.13) 08/29/19 10:45 APTT 50.3 Sec. (24.2-36.6) H 08/29/19 10:45 Fibrinogen 340 mg/dl (211-480) 08/29/19 10:45 Heparin Anti-Xa Level 0.23 U.I./ml (0.3-0.7) L 08/29/19 08:04 Sodium 138 mmol/L (137-145) 08/29/19 10:45 Potassium 4.7 mmol/L (3.6-5.0) 08/29/19 10:45 Chloride 102.9 mmol/L (98-107) 08/29/19 10:45 Carbon Dioxide 21 mmol/L (22-30) L 08/29/19 10:45 Anion Gap 19 mmol/L 08/29/19 10:45 BUN 14 mg/dL (9-20) 08/29/19 10:45 Creatinine 1.4 mg/dL (0.8-1.5) 08/29/19 10:45 Estimated GFR > 60 ml/min 08/29/19 10:45 BUN/Creatinine Ratio 10 % 08/29/19 10:45 Glucose 99 mg/dL (75-100) 08/29/19 10:45 Hemoglobin A1c 5.2 % (4-6) 08/28/19 21:50 Calcium 9.2 mg/dL (8.4-10.2) 08/29/19 10:45 Total Bilirubin 1.50 mg/dL (0.1-1.2) H 08/29/19 02:20 AST 17 units/L (5-40) 08/29/19 02:20 ALT 16 units/L (7-56) 08/29/19 02:20 Alkaline Phosphatase 83 units/L (35-129) 08/29/19 02:20 Total Creatine Kinase 235 units/L (55-170) H 08/28/19 18:06 CK-MB (CK-2) 4.0 ng/mL (0.0-4.0) 08/28/19 18:06 CK-MB (CK-2) Rel Index 1.7 (0-4) 08/28/19 18:06 Troponin T 0.012 ng/mL (0.00-0.029) 08/28/19 18:06 NT-Pro-B Natriuret Pep 3204 pg/mL (0-900) H 08/28/19 18:06 Total Protein 7.4 g/dL (6.3-8.2) 08/29/19 02:20 Albumin 3.9 g/dL (3.9-5) 08/29/19 02:20 Albumin/Globulin Ratio 1.1 % 08/29/19 02:20 Active Medications - Current Medications Current Medications: Generic Name Dose Route Start Last Admin Trade Name Freq PRN Reason Stop Dose Admin Acetaminophen 650 mg 08/28/19 21:31 Tylenol PO Q4H PRN Pain MILD(1-3)/Fever >100.5/STRAUSS Acetaminophen/Hydrocodone Bitart 2 each 08/29/19 12:52 [place] 5/325 PO Q6H PRN Pain, Moderate (4-6) Albuterol 2.5 mg 08/28/19 22:05 Proventil IH Q3HRT PRN Shortness Of Breath Famotidine 20 mg 08/28/19 22:00 08/29/19 09:55 Pepcid IV 20 mg BID CAROLYN Administration Sodium Chloride 1,000 mls @ 30 mls/hr 08/29/19 11:00 Nacl 0.9% 1000 Ml IV DIRECT CAROLYN Alteplase, Recombinant 10 mg/ 250 mls @ 10 mls/hr 08/29/19 12:00 Sodium Chloride EKOSDLUMEN DIRECT CAROLYN Sodium Chloride 1,000 mls @ 35 mls/hr 08/29/19 11:00 Nacl 0.9% 1000 Ml EKOSCLUMEN DIRECT CAROLYN Sodium Chloride 1,000 mls @ 30 mls/hr 08/29/19 11:00 Nacl 0.9% 1000 Ml SHEATH DIRECT CAROLYN Sodium Chloride 1,000 mls @ 35 mls/hr 08/29/19 11:00 Nacl 0.9% 1000 Ml EKOSCLUMEN DIRECT CAROLYN Heparin Sodium/Sodium Chloride 25,000 unit in 500 mls @ 10 mls/hr 08/29/19 11:00 Heparin/ 0.45% Nacl-25,000 Unit/500 Ml SHEATH DIRECT CAROLYN Protocol 500 UNITS/HR Heparin Sodium/Sodium Chloride 25,000 unit in 500 mls @ 10 mls/hr 08/29/19 11:00 Heparin/ 0.45% Nacl-25,000 Unit/500 Ml SHEATH DIRECT [facility] Protocol 500 UNITS/HR Alteplase, Recombinant 10 mg/ 250 mls @ 10 mls/hr 08/29/19 12:30 Sodium Chloride EKOSDLUMEN DIRECT CAROLYN Morphine Sulfate 4 mg 08/29/19 12:52 Morphine IV Q4H PRN Pain , Severe (7-10) Morphine Sulfate 2 mg 08/29/19 12:52 Morphine IV Q4H PRN Pain, Moderate (4-6) Ondansetron HCl 4 mg 08/29/19 12:52 Zofran IV Q8H PRN Nausea And Vomiting Sodium Chloride 10 ml 08/28/19 22:00 08/29/19 09:55 Sodium Chloride Flush Syringe 10 Ml IV 10 ml BID CAROLYN Administration Sodium Chloride 10 ml 08/28/19 21:31 Sodium Chloride Flush Syringe 10 Ml IV PRN PRN LINE FLUSH
[2019-08-29 19:34] LABS: Basophils % (Auto) 0.3 % (0.0-1.8); Eosinophils # (Auto) 0.2 K/mm3 (0.0-0.4); Eosinophils % (Auto) 1.7 % (0.0-4.3); Hematocrit 46.4 % (35.5-45.6); Hemoglobin 15.8 gm/dl (11.8-15.2); Lymphocytes # (Auto) 2.5 K/mm3 (1.2-5.4); Lymphocytes % (Auto) 26.5 % (13.4-35.0); Mean Corpuscular HGB Conc 34 % (32-34); Mean Corpuscular Volume 98 fl (84-94); Platelet Count 187 K/mm3 (140-440); Red Blood Count 4.73 M/mm3 (3.65-5.03); Red Cell Distribution Width 12.8 % (13.2-15.2)
[2019-08-30 00:53] LABS: Basophils % (Auto) 0.5 % (0.0-1.8); Eosinophils # (Auto) 0.2 K/mm3 (0.0-0.4); Eosinophils % (Auto) 2.8 % (0.0-4.3); Hematocrit 44.1 % (35.5-45.6); Hemoglobin 14.9 gm/dl (11.8-15.2); Lymphocytes # (Auto) 2.9 K/mm3 (1.2-5.4); Lymphocytes % (Auto) 36.5 % (13.4-35.0); Mean Corpuscular HGB Conc 34 % (32-34); Mean Corpuscular Volume 97 fl (84-94); Monocytes # (Auto) 1.1 K/mm3 (0.0-0.8); Monocytes % (Auto) 13.6 % (0.0-7.3); Platelet Count 157 K/mm3 (140-440); Red Blood Count 4.53 M/mm3 (3.65-5.03)
[2019-08-30] MEDS: MORPHINE 2 MG/1 ML INJ IV PRN ×3 (04:00→15:56)
[2019-08-30 06:04] LABS: Basophils % (Auto) 0.5 % (0.0-1.8); Eosinophils # (Auto) 0.2 K/mm3 (0.0-0.4); Hematocrit 43.7 % (35.5-45.6); Hemoglobin 14.9 gm/dl (11.8-15.2); Lymphocytes # (Auto) 2.5 K/mm3 (1.2-5.4); Lymphocytes % (Auto) 30.6 % (13.4-35.0); Mean Corpuscular HGB Conc 34 % (32-34); Mean Corpuscular Volume 97 fl (84-94); Monocytes % (Auto) 12.4 % (0.0-7.3); Platelet Count 148 K/mm3 (140-440); Red Blood Count 4.51 M/mm3 (3.65-5.03); Red Cell Distribution Width 12.8 % (13.2-15.2)
[2019-08-30 06:27] LABS: Calcium 8.6 mg/dL (8.4-10.2)
[2019-08-30] MEDS ORDERED: SODIUM CHLORIDE 0.9% 500 ML 500 ML ONE (08:18)
[2019-08-30] MEDS: FAMOTIDINE 20 MG/2 ML INJ IV SCH ×2 (10:25→21:41)
--- NOTE | 2019-08-30 10:27 | Progress Note ---
Assessment and Plan Patient will be brought down for removal of thrombolytics catheter. Following 2 hours of recovery, the patient will need to be ambulated with assistance to determine if there are additional oxygen requirements. He will need to be placed on anticoagulation for a minimum of 6 months and then follow up in our clinic in 2 weeks. Subjective Date of service: 08/30/19 Principal diagnosis: Sub-massive pulmonary embolism Interval history: Patient with a history of sub-massive pulmonary embolism with right heart strain who underwent placement of thrombolytics catheters yesterday. On examination today, the patient is breathing comfortably and satting 95-98% on 2 L by nasal cannula. No complaints of chest pain. He does complain of some back and leg pain secondary to being immobilized. His heart rate is in the 70s. Objective - Constitutional Vitals: Vital Signs - 12hr 08/29/19 08/29/19 08/30/19 23:00 23:33 00:00 Temperature 98.2 F Pulse Rate 72 70 Respiratory 21 26 H Rate Blood Pressure 115/82 108/58 O2 Sat by Pulse 96 93 Oximetry 08/30/19 08/30/19 08/30/19 00:53 01:00 02:00 Temperature Pulse Rate 72 69 70 Respiratory 14 19 Rate Blood Pressure 125/81 126/88 O2 Sat by Pulse 97 97 Oximetry 08/30/19 08/30/19 08/30/19 03:00 04:00 05:00 Temperature 98.5 F Pulse Rate 69 69 65 Respiratory 20 18 18 Rate Blood Pressure 129/88 130/85 127/83 O2 Sat by Pulse 97 97 96 Oximetry 08/30/19 08/30/19 08/30/19 06:00 07:00 08:00 Temperature 97.9 F Pulse Rate 65 65 66 Respiratory 15 16 17 Rate Blood Pressure 125/75 126/80 132/86 O2 Sat by Pulse 97 96 95 Oximetry General appearance: Present: no acute distress - EENT Eyes: EOM intact ENT: hearing intact - Neck Neck: supple, normal ROM - Respiratory Respiratory effort: normal - Cardiovascular Rhythm: regular - Gastrointestinal General gastrointestinal: Present: deferred Rectal Exam: deferred - Genitourinary Male genitourinary: deferred - Psychiatric Psychiatric: appropriate mood/affect, cooperative - Labs CBC & Chem 7: 08/30/19 05:46 08/30/19 05:46 Labs: Abnormal lab results 08/29/19 08/29/19 08/29/19 Range/Units 10:45 10:45 10:45 Hgb 15.7 H (11.8-15.2) gm/dl Hct 46.8 H (35.5-45.6) % MCV 98 H (84-94) fl MCH 33 H (28-32) pg RDW 12.8 L (13.2-15.2) % Lymph % (Auto) (13.4-35.0) % [place] % (Auto) 12.9 H (0.0-7.3) % [place] # 1.1 H (0.0-0.8) K/mm3 APTT 50.3 H (24.2-36.6) Sec. Heparin Anti-Xa Level (0.3-0.7) U.I./ml Sodium (137-145) mmol/L Carbon Dioxide 21 L (22-30) mmol/L Glucose (75-100) mg/dL 08/29/19 08/30/19 08/30/19 Range/Units 18:42 00:33 00:33 Hgb 15.8 H (11.8-15.2) gm/dl Hct 46.4 H (35.5-45.6) % MCV 98 H 97 H (84-94) fl MCH 33 H 33 H (28-32) pg RDW 12.8 L 13.0 L (13.2-15.2) % Lymph % (Auto) 36.5 H (13.4-35.0) % [place] % (Auto) 11.0 H 13.6 H (0.0-7.3) % [place] # 1.0 H 1.1 H (0.0-0.8) K/mm3 APTT (24.2-36.6) Sec. Heparin Anti-Xa Level 0.21 L (0.3-0.7) U.I./ml Sodium (137-145) mmol/L Carbon Dioxide (22-30) mmol/L Glucose (75-100) mg/dL 08/30/19 08/30/19 08/30/19 Range/Units 05:46 05:46 05:46 Hgb (11.8-15.2) gm/dl Hct (35.5-45.6) % MCV 97 H (84-94) fl MCH 33 H (28-32) pg RDW 12.8 L (13.2-15.2) % Lymph % (Auto) (13.4-35.0) % [place] % (Auto) 12.4 H (0.0-7.3) % [place] # 1.0 H (0.0-0.8) K/mm3 APTT (24.2-36.6) Sec. Heparin Anti-Xa Level 0.24 L (0.3-0.7) U.I./ml Sodium 136 L (137-145) mmol/L Carbon Dioxide (22-30) mmol/L Glucose 104 H (75-100) mg/dL Medications & Allergies - Medications Allergies/Adverse Reactions: Allergies No Known Allergies Allergy (Verified 08/29/19 09:35) Home Medications: Home Medications Medication Instructions Recorded Confirmed Last Taken Type No Known Home Medications [No 08/28/19 08/28/19 Unknown History Reported Home Medications] Active Medications: Generic Name Dose Route Start Last Admin Trade Name David PRN Reason Stop Dose Admin Acetaminophen 650 mg 08/28/19 21:31 Tylenol PO Q4H PRN Pain MILD(1-3)/Fever >100.5/STRAUSS Acetaminophen/Hydrocodone Bitart 2 each 08/29/19 12:52 [place] 5/325 PO Q6H PRN Pain, Moderate (4-6) Albuterol 2.5 mg 08/28/19 22:05 Proventil IH Q3HRT PRN Shortness Of Breath Famotidine 20 mg 08/28/19 22:00 08/29/19 21:12 Pepcid IV 20 mg BID CAROLYN Administration Sodium Chloride 1,000 mls @ 30 mls/hr 08/29/19 11:00 Nacl 0.9% 1000 Ml IV DIRECT CAROLYN Alteplase, Recombinant 10 mg/ 250 mls @ 10 mls/hr 08/29/19 12:00 08/29/19 13:55 Sodium Chloride EKOSDLUMEN 10 mls DIRECT CAROLYN Administration Sodium Chloride 1,000 mls @ 35 mls/hr 08/29/19 11:00 08/29/19 13:55 Nacl 0.9% 1000 Ml EKOSCLUMEN 35 mls DIRECT CAROLYN Administration Sodium Chloride 1,000 mls @ 30 mls/hr 08/29/19 11:00 Nacl 0.9% 1000 Ml SHEATH DIRECT CAROLYN Sodium Chloride 1,000 mls @ 35 mls/hr 08/29/19 11:00 08/29/19 13:55 Nacl 0.9% 1000 Ml EKOSCLUMEN 35 mls DIRECT CAROLYN Administration Heparin Sodium/Sodium Chloride 25,000 unit in 500 mls @ 10 mls/hr 08/29/19 11:00 08/29/19 13:55 Heparin/ 0.45% Nacl-25,000 Unit/500 Ml SHEATH 10 mls DIRECT CAROLYN Administration Protocol 500 UNITS/HR Heparin Sodium/Sodium Chloride 25,000 unit in 500 mls @ 10 mls/hr 08/29/19 11:00 08/29/19 13:55 Heparin/ 0.45% Nacl-25,000 Unit/500 Ml SHEATH 10 mls DIRECT CAROLYN Administration Protocol 500 UNITS/HR Alteplase, Recombinant 10 mg/ 250 mls @ 10 mls/hr 08/29/19 12:30 08/29/19 13:55 Sodium Chloride EKOSDLUMEN 10 mls DIRECT CAROLYN Administration Morphine Sulfate 4 mg 08/29/19 12:52 Morphine IV Q4H PRN Pain , Severe (7-10) Morphine Sulfate 2 mg 08/29/19 12:52 08/30/19 08:00 Morphine IV 2 mg Q4H PRN Administration Pain, Moderate (4-6) Ondansetron HCl 4 mg 08/29/19 12:52 Zofran IV Q8H PRN Nausea And Vomiting Sodium Chloride 10 ml 08/28/19 22:00 08/29/19 21:12 Sodium Chloride Flush Syringe 10 Ml IV 10 ml BID CAROLYN Administration Sodium Chloride 10 ml 08/28/19 21:31 Sodium Chloride Flush Syringe 10 Ml IV PRN PRN LINE FLUSH
--- NOTE | 2019-08-30 11:52 | Progress Note ---
Assessment and Plan 59 y/o male with submassive PE 1. reviewed IR note and agree with their assessment and recs. Would also suggest that he see hematology for further work up of hypercoaguable state to help understand etiology 2. Should be stable for transfer to floor after recovery time post EKOS removal. Subjective Date of service: 08/30/19 Principal diagnosis: Sub-massive pulmonary embolism Interval history: Down for EKOS catheter removal Objective Vital Signs - 12hr 08/30/19 08/30/19 08/30/19 00:00 00:53 01:00 Temperature Pulse Rate 70 72 69 Respiratory 26 H 14 Rate Blood Pressure 108/58 125/81 O2 Sat by Pulse 93 97 Oximetry 08/30/19 08/30/19 08/30/19 02:00 03:00 04:00 Temperature 98.5 F Pulse Rate 70 69 69 Respiratory 19 20 18 Rate Blood Pressure 126/88 129/88 130/85 O2 Sat by Pulse 97 97 97 Oximetry 08/30/19 08/30/19 08/30/19 05:00 06:00 07:00 Temperature Pulse Rate 65 65 65 Respiratory 18 15 16 Rate Blood Pressure 127/83 125/75 126/80 O2 Sat by Pulse 96 97 96 Oximetry 08/30/19 08/30/19 08/30/19 08:00 09:00 10:00 Temperature 97.9 F Pulse Rate 66 66 69 Respiratory 17 18 18 Rate Blood Pressure 132/86 126/84 137/84 O2 Sat by Pulse 95 97 94 Oximetry 08/30/19 11:00 Temperature Pulse Rate 69 Respiratory 10 L Rate Blood Pressure 116/89 O2 Sat by Pulse 97 Oximetry CBC and BMP: 08/30/19 05:46 08/30/19 05:46 ABG, PT/INR, D-dimer: PT/INR, D-dimer PT 14.2 Sec. (12.2-14.9) 08/29/19 10:45 INR 1.11 (0.87-1.13) 08/29/19 10:45 Abnormal lab findings: Abnormal Labs 08/28/19 08/28/19 08/28/19 18:06 18:06 18:06 Hgb 16.3 H Hct 48.9 H MCV 98 H MCH 33 H RDW 12.8 L Lymph % (Auto) [place] % (Auto) 12.8 H [place] # 1.4 H INR 1.15 H APTT Heparin Anti-Xa Level Sodium Carbon Dioxide Glucose 105 H Total Bilirubin Total Creatine Kinase 235 H NT-Pro-B Natriuret Pep 3204 H 08/28/19 08/28/19 08/29/19 21:50 21:50 02:20 Hgb 15.8 H 15.8 H Hct 47.3 H 47.2 H MCV 97 H MCH 33 H RDW 12.8 L Lymph % (Auto) [place] % (Auto) 11.9 H [place] # 1.3 H INR 1.16 H APTT 81.3 H* Heparin Anti-Xa Level Sodium Carbon Dioxide Glucose Total Bilirubin Total Creatine Kinase NT-Pro-B Natriuret Pep 08/29/19 08/29/19 08/29/19 02:20 02:20 08:04 Hgb Hct MCV MCH RDW Lymph % (Auto) [place] % (Auto) [place] # INR APTT Heparin Anti-Xa Level 0.20 L 0.23 L Sodium Carbon Dioxide Glucose 106 H Total Bilirubin 1.50 H Total Creatine Kinase NT-Pro-B Natriuret Pep 08/29/19 08/29/19 08/29/19 10:45 10:45 10:45 Hgb 15.7 H Hct 46.8 H MCV 98 H MCH 33 H RDW 12.8 L Lymph % (Auto) [place] % (Auto) 12.9 H [place] # 1.1 H INR APTT 50.3 H Heparin Anti-Xa Level Sodium Carbon Dioxide 21 L Glucose Total Bilirubin Total Creatine Kinase NT-Pro-B Natriuret Pep 08/29/19 08/30/19 08/30/19 18:42 00:33 00:33 Hgb 15.8 H Hct 46.4 H MCV 98 H 97 H MCH 33 H 33 H RDW 12.8 L 13.0 L Lymph % (Auto) 36.5 H [place] % (Auto) 11.0 H 13.6 H [place] # 1.0 H 1.1 H INR APTT Heparin Anti-Xa Level 0.21 L Sodium Carbon Dioxide Glucose Total Bilirubin Total Creatine Kinase NT-Pro-B Natriuret Pep 08/30/19 08/30/19 08/30/19 05:46 05:46 05:46 Hgb Hct MCV 97 H MCH 33 H RDW 12.8 L Lymph % (Auto) [place] % (Auto) 12.4 H [place] # 1.0 H INR APTT Heparin Anti-Xa Level 0.24 L Sodium 136 L Carbon Dioxide Glucose 104 H Total Bilirubin Total Creatine Kinase NT-Pro-B Natriuret Pep
[2019-08-30] MEDS ORDERED: HEPARIN 10,000 UNITS/10 ML VIAL ONE (11:55)
[2019-08-30] MEDS ORDERED: HEPARIN/NS 5000 UNIT/500ML 500 ML IR ONE (11:55)
[2019-08-30] MEDS ORDERED: SODIUM CHLORIDE 0.9% 250ML 250 ML ONE (11:56)
--- NOTE | 2019-08-30 11:59 | Progress Note ---
Assessment and Plan - Patient Problems (1) Bilateral pulmonary embolism Current Visit: Yes Status: Acute Plan to address problem: bilateral pulmonary emboli s/p EKOS on IV heparin evidence of RV strain; normal LVEF by echo Subjective Date of service: 08/30/19 Principal diagnosis: Sub-massive pulmonary embolism Interval history: EKOS catheters are in place. Patient denies chest pain and shortness of breath. Objective Vital Signs Temp Pulse Resp BP Pulse Ox 08/30/19 11:00 69 10 L 116/89 97 08/30/19 10:00 69 18 137/84 94 08/30/19 09:00 66 18 126/84 97 08/30/19 08:00 97.9 F 66 17 132/86 95 08/30/19 07:00 65 16 126/80 96 08/30/19 06:00 65 15 125/75 97 08/30/19 05:00 65 18 127/83 96 08/30/19 04:00 98.5 F 69 18 130/85 97 08/30/19 03:00 69 20 129/88 97 08/30/19 02:00 70 19 126/88 97 08/30/19 01:00 69 14 125/81 97 08/30/19 00:53 72 08/30/19 00:00 70 26 H 108/58 93 08/29/19 23:33 98.2 F 08/29/19 23:00 72 21 115/82 96 08/29/19 22:00 77 22 122/89 97 08/29/19 21:00 77 25 H 128/86 97 08/29/19 20:04 79 21 124/84 98 08/29/19 20:00 97.9 F 80 21 124/84 98 08/29/19 19:00 85 18 123/88 97 08/29/19 18:00 87 16 131/92 93 08/29/19 17:30 21 114/93 94 08/29/19 17:00 77 22 117/90 96 08/29/19 16:30 22 116/86 96 08/29/19 16:00 98.2 F 81 19 134/84 96 08/29/19 15:30 18 128/94 96 08/29/19 15:00 82 28 H 136/96 95 08/29/19 14:45 23 144/94 95 08/29/19 14:30 20 137/90 94 08/29/19 14:15 20 139/92 94 08/29/19 14:00 80 17 128/98 95 08/29/19 13:23 134/101 93 08/29/19 12:00 97.9 F 78 24 97 - Physical Examination General: No Apparent Distress HEENT: Positive: PERRL Neck: Positive: trachea midline Cardiac: Positive: Reg Rate and Rhythm Lungs: Positive: Decreased Breath Sounds - Labs and Meds CBC 08/29/19 08/30/19 08/30/19 Range/Units 18:42 00:33 05:46 WBC 9.3 7.9 8.1 (4.5-11.0) K/mm3 RBC 4.73 4.53 4.51 (3.65-5.03) M/mm3 Hgb 15.8 H 14.9 14.9 (11.8-15.2) gm/dl Hct 46.4 H 44.1 43.7 (35.5-45.6) % Plt Count 187 157 148 (140-440) K/mm3 Lymph # 2.5 2.9 2.5 (1.2-5.4) K/mm3 [place] # 1.0 H 1.1 H 1.0 H (0.0-0.8) K/mm3 Eos # 0.2 0.2 0.2 (0.0-0.4) K/mm3 Baso # 0.0 0.0 0.0 (0.0-0.1) K/mm3 Comprehensive Metabolic Panel 08/30/19 Range/Units 05:46 Sodium 136 L (137-145) mmol/L Potassium 4.7 (3.6-5.0) mmol/L Chloride 102.3 (98-107) mmol/L Carbon Dioxide 23 (22-30) mmol/L BUN 11 (9-20) mg/dL Creatinine 1.5 (0.8-1.5) mg/dL Glucose 104 H (75-100) mg/dL Calcium 8.6 (8.4-10.2) mg/dL
--- NOTE | 2019-08-30 12:10 | Progress Note ---
Assessment and Plan Assessment and plan: Bilateral PE with right ventricular strain - Patient is on IV heparin drip - Vascular surgery consulted and did thrombolytics yesterday, catheter removed today - We'll change to eliquis at discharge Cardiology consulted - Echo showed dilated right ventricle, Disposition; possible DC to the floor if stable. History Interval history: Patient was seen and evaluated this morning, patient didn't have any complaints. No shortness of breath is or chest pain. patient is status post thrombolytics. Hospitalist Physical - Physical exam Narrative exam: Not in cardiopulmonary distress. The patient appeared well nourished and normally developed. Vital signs as documented. Head exam is unremarkable. No scleral icterus . Neck is without jugular venous distension, thyromegaly, or carotid bruits. Lungs are clear to auscultation. Cardiac exam reveals regular rate and Rhythm. First and second heart sounds normal. No murmurs, rubs or gallops. Abdominal exam reveals normal bowel sounds, no masses, no organomegaly and no aortic enlargement. Extremities are nonedematous and both femoral and pedal pulses are normal. TEMPERATURE CONTROL INSPECTOR: Alert and oriented 3. No focal weakness. - Constitutional Vitals: Temp Pulse Resp BP Pulse Ox 97.9 F 69 10 L 116/89 97 08/30/19 08:00 08/30/19 11:00 08/30/19 11:00 08/30/19 11:00 08/30/19 11:00 General appearance: Present: no acute distress Results - Labs CBC & Chem 7: 08/30/19 05:46 08/30/19 05:46 Labs: Laboratory Last Values WBC 8.1 K/mm3 (4.5-11.0) 08/30/19 05:46 RBC 4.51 M/mm3 (3.65-5.03) 08/30/19 05:46 Hgb 14.9 gm/dl (11.8-15.2) 08/30/19 05:46 Hct 43.7 % (35.5-45.6) 08/30/19 05:46 MCV 97 fl (84-94) H 08/30/19 05:46 MCH 33 pg (28-32) H 08/30/19 05:46 MCHC 34 % (32-34) 08/30/19 05:46 RDW 12.8 % (13.2-15.2) L 08/30/19 05:46 Plt Count 148 K/mm3 (140-440) 08/30/19 05:46 Lymph % (Auto) 30.6 % (13.4-35.0) 08/30/19 05:46 [place] % (Auto) 12.4 % (0.0-7.3) H 08/30/19 05:46 Eos % (Auto) 3.0 % (0.0-4.3) 08/30/19 05:46 Baso % (Auto) 0.5 % (0.0-1.8) 08/30/19 05:46 Lymph # 2.5 K/mm3 (1.2-5.4) 08/30/19 05:46 [place] # 1.0 K/mm3 (0.0-0.8) H 08/30/19 05:46 Eos # 0.2 K/mm3 (0.0-0.4) 08/30/19 05:46 Baso # 0.0 K/mm3 (0.0-0.1) 08/30/19 05:46 Seg Neutrophils % 53.5 % (40.0-70.0) 08/30/19 05:46 Seg Neutrophils # 4.3 K/mm3 (1.8-7.7) 08/30/19 05:46 PT 14.2 Sec. (12.2-14.9) 08/29/19 10:45 INR 1.11 (0.87-1.13) 08/29/19 10:45 APTT 50.3 Sec. (24.2-36.6) H 08/29/19 10:45 Fibrinogen 350 mg/dl (211-480) 08/30/19 05:46 Heparin Anti-Xa Level 0.24 U.I./ml (0.3-0.7) L 08/30/19 05:46 Sodium 136 mmol/L (137-145) L 08/30/19 05:46 Potassium 4.7 mmol/L (3.6-5.0) 08/30/19 05:46 Chloride 102.3 mmol/L (98-107) 08/30/19 05:46 Carbon Dioxide 23 mmol/L (22-30) 08/30/19 05:46 Anion Gap 15 mmol/L 08/30/19 05:46 BUN 11 mg/dL (9-20) 08/30/19 05:46 Creatinine 1.5 mg/dL (0.8-1.5) 08/30/19 05:46 Estimated GFR 58 ml/min 08/30/19 05:46 BUN/Creatinine Ratio 7 % 08/30/19 05:46 Glucose 104 mg/dL (75-100) H 08/30/19 05:46 Hemoglobin A1c 5.2 % (4-6) 08/28/19 21:50 Calcium 8.6 mg/dL (8.4-10.2) 08/30/19 05:46 Total Bilirubin 1.50 mg/dL (0.1-1.2) H 08/29/19 02:20 AST 17 units/L (5-40) 08/29/19 02:20 ALT 16 units/L (7-56) 08/29/19 02:20 Alkaline Phosphatase 83 units/L (35-129) 08/29/19 02:20 Total Creatine Kinase 235 units/L (55-170) H 08/28/19 18:06 CK-MB (CK-2) 4.0 ng/mL (0.0-4.0) 08/28/19 18:06 CK-MB (CK-2) Rel Index 1.7 (0-4) 08/28/19 18:06 Troponin T 0.012 ng/mL (0.00-0.029) 08/28/19 18:06 NT-Pro-B Natriuret Pep 3204 pg/mL (0-900) H 08/28/19 18:06 Total Protein 7.4 g/dL (6.3-8.2) 08/29/19 02:20 Albumin 3.9 g/dL (3.9-5) 08/29/19 02:20 Albumin/Globulin Ratio 1.1 % 08/29/19 02:20 Active Medications - Current Medications Current Medications: Generic Name Dose Route Start Last Admin Trade Name Freq PRN Reason Stop Dose Admin Acetaminophen 650 mg 08/28/19 21:31 Tylenol PO Q4H PRN Pain MILD(1-3)/Fever >100.5/STRAUSS Acetaminophen/Hydrocodone Bitart 2 each 08/29/19 12:52 [place] 5/325 PO Q6H PRN Pain, Moderate (4-6) Albuterol 2.5 mg 08/28/19 22:05 Proventil IH Q3HRT PRN Shortness Of Breath Famotidine 20 mg 08/28/19 22:00 08/29/19 21:12 Pepcid IV 20 mg BID CAROLYN Administration Sodium Chloride 1,000 mls @ 30 mls/hr 08/29/19 11:00 Nacl 0.9% 1000 Ml IV DIRECT CAROLYN Alteplase, Recombinant 10 mg/ 250 mls @ 10 mls/hr 08/29/19 12:00 08/29/19 13:55 Sodium Chloride EKOSDLUMEN 10 mls DIRECT CAROLYN Administration Sodium Chloride 1,000 mls @ 35 mls/hr 08/29/19 11:00 08/29/19 13:55 Nacl 0.9% 1000 Ml EKOSCLUMEN 35 mls DIRECT CAROLYN Administration Sodium Chloride 1,000 mls @ 30 mls/hr 08/29/19 11:00 Nacl 0.9% 1000 Ml SHEATH DIRECT CAROLYN Sodium Chloride 1,000 mls @ 35 mls/hr 08/29/19 11:00 08/29/19 13:55 Nacl 0.9% 1000 Ml EKOSCLUMEN 35 mls DIRECT CAROLYN Administration Heparin Sodium/Sodium Chloride 25,000 unit in 500 mls @ 10 mls/hr 08/29/19 11:00 08/29/19 13:55 Heparin/ 0.45% Nacl-25,000 Unit/500 Ml SHEATH 10 mls DIRECT CAROLYN Administration Protocol 500 UNITS/HR Heparin Sodium/Sodium Chloride 25,000 unit in 500 mls @ 10 mls/hr 08/29/19 11:00 08/29/19 13:55 Heparin/ 0.45% Nacl-25,000 Unit/500 Ml SHEATH 10 mls DIRECT CAROLYN Administration Protocol 500 UNITS/HR Alteplase, Recombinant 10 mg/ 250 mls @ 10 mls/hr 08/29/19 12:30 08/29/19 13:55 Sodium Chloride EKOSDLUMEN 10 mls DIRECT CAROLYN Administration Morphine Sulfate 4 mg 08/29/19 12:52 Morphine IV Q4H PRN Pain , Severe (7-10) Morphine Sulfate 2 mg 08/29/19 12:52 08/30/19 08:00 Morphine IV 2 mg Q4H PRN Administration Pain, Moderate (4-6) Ondansetron HCl 4 mg 08/29/19 12:52 Zofran IV Q8H PRN Nausea And Vomiting Sodium Chloride 10 ml 08/28/19 22:00 08/29/19 21:12 Sodium Chloride Flush Syringe 10 Ml IV 10 ml BID CAROLYN Administration Sodium Chloride 10 ml 08/28/19 21:31 Sodium Chloride Flush Syringe 10 Ml IV PRN PRN LINE FLUSH
[2019-08-30] MEDS: MIDAZOLAM 2 MG/2 ML INJ ONE ×2 (12:18→12:20)
[2019-08-30] MEDS: fentaNYL 100 MCG/2 ML INJ ONE ×2 (12:18→12:20)
[2019-08-30] MEDS: LIDOCAINE 1%/EPINEPHRINE 1:100,000 VIAL (20 ML) INFILTRATI ONE ×2 (12:18→19:44)
--- NOTE | 2019-08-30 12:48 | Post Operative Note ---
Pre-op diagnosis: Symptomatic Pulmonary Embolus Post-op diagnosis: same Findings: Angiogram of the Left Lower Lobe, Left Main Pulmonary Artery, Right Lower Lobe and Right Main Pulmonary Artery were patent and did not demonstrate any evidence of residual significant thrombus burden Procedure: Diagnostic Pulmonary Angiogram Anesthesia: MAC, local Surgeon: VERONIKA ADAN Estimated blood loss: minimal Pathology: none Condition: stable Disposition: ICU
[2019-08-30] MEDS ORDERED: APIXABAN 5 MG TAB PO SCH (15:00)
--- NOTE | 2019-08-30 15:01 | Vascular Lab Report ---
DUPLEX DOPPLER LOWER EXTREMITY VEINS, BILATERAL INDICATION: Bilateral PEs. TECHNIQUE: Duplex doppler imaging was performed through the veins of both lower extremities using ve nous compression and other maneuvers. COMPARISON: No relevant prior imaging study available. FINDINGS: Right Common femoral vein: Negative. Right Superficial femoral vein: Negative. Right Popliteal vein: Positive. Right Calf veins: Positive in the proximal posterior tibial vein. Left Common femoral vein: Negative. Left Superficial femoral vein: Positive in the distal femoral vein. Left Popliteal vein: Positive. Left Calf veins: Negative. Additional findings: None.. IMPRESSION: Positive for bilateral lower extremity DVTs as described. Signer Name: Moustapha Swain Jr, MD Signed: 08/30/2019 2:57 PM Workstation Name: [id number]
--- NOTE | 2019-08-30 15:25 | Operative Report ---
PREOPERATIVE DIAGNOSIS: Symptomatic pulmonary embolism. POSTOPERATIVE DIAGNOSIS: Symptomatic pulmonary embolism. PROCEDURE PERFORMED: Diagnostic pulmonary angiogram. COMPLICATIONS: None. ESTIMATED BLOOD LOSS: Less than 10 mL. ANESTHESIA: Local MAC. ANGIOGRAPHIC FINDINGS: Angiogram of the left lower lobe, left main, pulmonary artery, right lower lobe and the right main pulmonary arteries were all found to be patent and did not demonstrate any evidence of residual significant thrombus burden. INDICATIONS FOR PROCEDURE: This is a 59-year-old gentleman who is currently hospitalized due to symptomatic pulmonary embolism, who had EKOS catheters placed and is being brought back for a repeat diagnostic angiogram for any evidence of residual burden. The patient was explained the risks, benefits and alternatives of procedure, expressed understanding and wished to proceed. DESCRIPTION OF PROCEDURE: After appropriate consent was obtained, the patient was brought back to the clinical lab technologist, placed on table in supine position. The right groin was prepped and draped in the usual sterile fashion. Appropriate timeout was performed indicating the correct patient, procedure, and site of the procedure. We then began the intervention by first removing the infusion catheter on the right and then diagnostic imaging through the EKOS catheter was then performed at the left lower and left main pulmonary arteries, which demonstrated the findings noted above. With that, the catheter was then subsequently removed. The infusion catheter was then removed on the left and again diagnostic angiogram was then performed through the EKOS catheter at the left lower and main pulmonary artery again demonstrating findings noted above. With that, the catheter was also removed. Both 6-Dutch sheaths were subsequently removed and digital compression was held at the access site for hemostasis. A pressure dressing was placed. Once we were satisfied with hemostasis, the patient tolerated the procedure well, emerged from the conscious sedation and was sent to recovery in stable condition. JOB# [id number] EVY/LEANN YUAN
[2019-08-30 15:28] LABS: Hematocrit 45.7 % (35.5-45.6); Hemoglobin 15.3 gm/dl (11.8-15.2)
[2019-08-30 15:46] LABS: INR 1.02 (0.87-1.13)
[2019-08-30 15:52] LABS: Partial Thromboplastin Time 39.5 Sec. (24.2-36.6)
[2019-08-30] MEDS: APIXABAN 5 MG TAB PO SCH (21:41)
[2019-08-30] MEDS: MORPHINE 4 MG/1 ML INJ IV PRN (21:42)
[2019-08-31] MEDS: MORPHINE 4 MG/1 ML INJ IV PRN (03:58)
[2019-08-31 04:54] LABS: Basophils % (Auto) 0.5 % (0.0-1.8); Eosinophils # (Auto) 0.3 K/mm3 (0.0-0.4); Eosinophils % (Auto) 4.4 % (0.0-4.3); Hematocrit 42.6 % (35.5-45.6); Hemoglobin 14.4 gm/dl (11.8-15.2); Lymphocytes # (Auto) 2.3 K/mm3 (1.2-5.4); Lymphocytes % (Auto) 33.8 % (13.4-35.0); Mean Corpuscular HGB Conc 34 % (32-34); Mean Corpuscular Volume 97 fl (84-94); Monocytes # (Auto) 0.9 K/mm3 (0.0-0.8); Monocytes % (Auto) 13.5 % (0.0-7.3); Platelet Count 158 K/mm3 (140-440); Red Cell Distribution Width 12.3 % (13.2-15.2)
[2019-08-31 05:04] LABS: BUN/Creatinine Ratio 9; Blood Urea Nitrogen 11 mg/dL (9-20); Calcium 8.8 mg/dL (8.4-10.2); Hemolysis Index 8
--- NOTE | 2019-08-31 07:03 | XRay Report ---
ABDOMEN 1 VIEW INDICATION / CLINICAL INFORMATION: abd pain. COMPARISON: None available. FINDINGS: TUBES / LINES: None. BOWEL GAS PATTERN: No significant abnormality. FREE AIR / EXTRALUMINAL GAS: None seen. ADDITIONAL FINDINGS: No significant additional findings. IMPRESSION: 1. No significant abnormality. Signer Name: Jojo Lama MD Signed: 08/31/2019 6:58 AM Workstation Name: [id number]
--- NOTE | 2019-08-31 08:41 | Progress Note ---
Assessment and Plan Patient clinically improving following thrombolytic therapy for his pulmonary embolism. He subsequently developed back pain attributable to immobilization for 24 hours and also left lower quadrant focal abdominal pain. We will obtain a CT of the abdomen and pelvis. The patient is noted on ultrasound to have bilateral lower leg DVTs, unable to elicit a scenario for the DVTs were provoked. The patient will need to undergo a hypercoagulable workup either as an inpatient or outpatient. He will need to remain on anticoagulation for at least 6 months with repeat imaging of his legs prior to discontinuation of his anticoagulation. Subjective Date of service: 08/31/19 Principal diagnosis: Sub-massive pulmonary embolism Interval history: Patient resting comfortably in bed. He is not yet ambulated however, we will later this morning. Overnight, the patient complained of focal left lower quadrant abdominal pain. Abdominal x-ray was performed which was unremarkable. Labs were drawn and his hemoglobin is stable since admission. Ultrasound reports noted and patient has bilateral DVTs predominantly involving his lower leg. Objective - Constitutional Vitals: Vital Signs - 12hr 08/30/19 08/30/19 08/30/19 21:00 22:00 23:00 Temperature Pulse Rate 67 68 66 Respiratory 24 24 10 L Rate Blood Pressure 140/84 141/97 155/92 O2 Sat by Pulse 96 98 98 Oximetry 08/30/19 08/30/19 08/31/19 23:20 23:34 00:00 Temperature 97.9 F Pulse Rate 67 64 Respiratory 22 19 Rate Blood Pressure 155/92 146/92 O2 Sat by Pulse 97 96 Oximetry 08/31/19 08/31/19 08/31/19 01:00 02:06 03:00 Temperature Pulse Rate 61 66 58 L Respiratory 18 17 10 L Rate Blood Pressure 148/108 144/78 O2 Sat by Pulse 98 98 98 Oximetry 08/31/19 08/31/19 08/31/19 04:00 05:00 06:00 Temperature 97.9 F Pulse Rate 61 56 L 61 Respiratory 14 16 17 Rate Blood Pressure 154/100 158/98 148/90 O2 Sat by Pulse 96 95 99 Oximetry General appearance: Present: no acute distress - EENT Eyes: EOM intact ENT: hearing intact - Neck Neck: supple, normal ROM - Respiratory Respiratory effort: normal - Breasts Breasts: deferred - Cardiovascular Rhythm: regular - Gastrointestinal General gastrointestinal: Present: soft Rectal Exam: deferred - Genitourinary Male genitourinary: deferred - Psychiatric Psychiatric: appropriate mood/affect, cooperative - Labs CBC & Chem 7: 08/31/19 04:38 08/31/19 04:38 Labs: Abnormal lab results 08/30/19 08/30/19 08/30/19 Range/Units 14:51 14:51 18:40 Hgb 15.3 H (11.8-15.2) gm/dl Hct 45.7 H (35.5-45.6) % MCV (84-94) fl MCH (28-32) pg RDW (13.2-15.2) % [place] % (Auto) (0.0-7.3) % Eos % (Auto) (0.0-4.3) % [place] # (0.0-0.8) K/mm3 APTT 39.5 H (24.2-36.6) Sec. Heparin Anti-Xa Level < 0.10 L (0.3-0.7) U.I./ml Sodium (137-145) mmol/L Glucose (75-100) mg/dL 08/31/19 08/31/19 Range/Units 04:38 04:38 Hgb (11.8-15.2) gm/dl Hct (35.5-45.6) % MCV 97 H (84-94) fl MCH 33 H (28-32) pg RDW 12.3 L (13.2-15.2) % [place] % (Auto) 13.5 H (0.0-7.3) % Eos % (Auto) 4.4 H (0.0-4.3) % [place] # 0.9 H (0.0-0.8) K/mm3 APTT (24.2-36.6) Sec. Heparin Anti-Xa Level (0.3-0.7) U.I./ml Sodium 135 L (137-145) mmol/L Glucose 102 H (75-100) mg/dL Medications & Allergies - Medications Allergies/Adverse Reactions: Allergies No Known Allergies Allergy (Verified 08/29/19 09:35) Home Medications: Home Medications Medication Instructions Recorded Confirmed Last Taken Type No Known Home Medications [No 08/28/19 08/28/19 Unknown History Reported Home Medications] Active Medications: Generic Name Dose Route Start Last Admin Trade Name Freq PRN Reason Stop Dose Admin Acetaminophen 650 mg 08/28/19 21:31 Tylenol PO Q4H PRN Pain MILD(1-3)/Fever >100.5/STRAUSS Acetaminophen/Hydrocodone Bitart 2 each 08/29/19 12:52 [place] 5/325 PO Q6H PRN Pain, Moderate (4-6) Albuterol 2.5 mg 08/28/19 22:05 Proventil IH Q3HRT PRN Shortness Of Breath Apixaban 10 mg 08/30/19 22:00 08/30/19 21:41 Eliquis PO 09/06/19 21:59 10 mg Q12HR CAROLYN Administration Protocol Famotidine 20 mg 08/28/19 22:00 08/30/19 21:41 Pepcid IV 20 mg BID CAROLYN Administration Sodium Chloride 1,000 mls @ 30 mls/hr 08/29/19 11:00 Nacl 0.9% 1000 Ml IV DIRECT CAROLYN Morphine Sulfate 4 mg 08/29/19 12:52 08/31/19 03:58 Morphine IV 4 mg Q4H PRN Administration Pain , Severe (7-10) Morphine Sulfate 2 mg 08/29/19 12:52 08/30/19 15:56 Morphine IV 2 mg Q4H PRN Administration Pain, Moderate (4-6) Ondansetron HCl 4 mg 08/29/19 12:52 Zofran IV Q8H PRN Nausea And Vomiting Sodium Chloride 10 ml 08/28/19 22:00 08/30/19 21:42 Sodium Chloride Flush Syringe 10 Ml IV 10 ml BID CAROLYN Administration Sodium Chloride 10 ml 08/28/19 21:31 Sodium Chloride Flush Syringe 10 Ml IV PRN PRN LINE FLUSH
--- NOTE | 2019-08-31 09:37 | Progress Note ---
Assessment and Plan Bilateral pulmonary emboli and DVT s/p EKOS initiated on Eliquis evidence of RV strain; normal LVEF by echo Conservative cardiac management. Subjective Date of service: 08/31/19 Principal diagnosis: Sub-massive pulmonary embolism Interval history: No cardiac complaints. Objective Vital Signs Temp Pulse Resp BP Pulse Ox 08/31/19 09:04 95 08/31/19 08:00 97.8 F 08/31/19 06:00 61 17 148/90 99 08/31/19 05:00 56 L 16 158/98 95 08/31/19 04:00 97.9 F 61 14 154/100 96 08/31/19 03:00 58 L 10 L 144/78 98 08/31/19 02:06 66 17 98 08/31/19 01:00 61 18 148/108 98 08/31/19 00:00 64 19 146/92 96 08/30/19 23:34 97.9 F 08/30/19 23:20 67 22 155/92 97 08/30/19 23:00 66 10 L 155/92 98 08/30/19 22:00 68 24 141/97 98 08/30/19 21:00 67 24 140/84 96 08/30/19 20:00 97.9 F 65 20 159/96 94 08/30/19 19:00 63 21 150/93 96 08/30/19 18:00 76 25 H 143/92 93 08/30/19 17:00 75 23 148/95 96 08/30/19 16:00 97 F L 75 18 119/94 94 08/30/19 15:00 66 15 149/95 92 08/30/19 14:00 67 21 143/91 96 08/30/19 13:10 64 131/82 08/30/19 11:30 95 08/30/19 11:00 69 10 L 116/89 97 08/30/19 10:00 69 18 137/84 94 - Physical Examination General: No Apparent Distress HEENT: Positive: PERRL Neck: Positive: trachea midline Cardiac: Positive: Reg Rate and Rhythm Lungs: Positive: Decreased Breath Sounds Neuro: Positive: Grossly Intact - Labs and Meds Coagulation 08/30/19 Range/Units 14:51 PT 13.3 (12.2-14.9) Sec. INR 1.02 (0.87-1.13) APTT 39.5 H (24.2-36.6) Sec. CBC 08/30/19 08/31/19 Range/Units 14:51 04:38 WBC 6.7 (4.5-11.0) K/mm3 RBC 4.40 (3.65-5.03) M/mm3 Hgb 15.3 H 14.4 (11.8-15.2) gm/dl Hct 45.7 H 42.6 (35.5-45.6) % Plt Count 143 158 (140-440) K/mm3 Lymph # 2.3 (1.2-5.4) K/mm3 [place] # 0.9 H (0.0-0.8) K/mm3 Eos # 0.3 (0.0-0.4) K/mm3 Baso # 0.0 (0.0-0.1) K/mm3 Comprehensive Metabolic Panel 08/31/19 Range/Units 04:38 Sodium 135 L (137-145) mmol/L Potassium 4.5 (3.6-5.0) mmol/L Chloride 100.6 (98-107) mmol/L Carbon Dioxide 23 (22-30) mmol/L BUN 11 (9-20) mg/dL Creatinine 1.2 (0.8-1.5) mg/dL Glucose 102 H (75-100) mg/dL Calcium 8.8 (8.4-10.2) mg/dL
[2019-08-31] MEDS: FAMOTIDINE 20 MG TAB PO SCH ×2 (09:46→21:51)
[2019-08-31] MEDS: APIXABAN 5 MG TAB PO SCH ×2 (09:46→21:52)
--- NOTE | 2019-08-31 11:36 | Event Note ---
Date: 08/31/19 [id number]
--- NOTE | 2019-08-31 12:52 | Consultation ---
REFERRING PHYSICIAN: Dr. Estevez. REASON FOR CONSULTATION: DVT, legs and PE. HISTORY OF PRESENT ILLNESS: I saw this patient, a 59-year-old male in the medical floor. The patient came to the hospital on 08/28/2019. He was admitted from Cardiology office because of abnormal EKG and shortness of breath. Echo in the office had shown dilated right ventricle. After admission, he was found to have bilateral PE on CT chest. The report mentions that it was extensive in all 5 lobes of the lung and extension into both main pulmonary arteries. The patient was also found to have leg DVT on Doppler of both the legs. The patient says that he never had previous DVT or PE. No family history of DVT or PE. The patient denies any travel. No new medications. The patient underwent procedure by the vascular team. I have been asked to evaluate the patient in view of this. At this time, no headache, no visual disturbances, no ear discharge. Chest pain is better. Breathing is better. The patient is on oxygen. No abdominal pain, no vomiting, no diarrhea, no dysuria. The patient has been changed from heparin to Eliquis. PAST SURGICAL HISTORY: Tonsil surgery. SOCIAL HISTORY: Nonsmoker. FAMILY HISTORY: Noncontributory. ALLERGIES: None. PRESENT MEDICATIONS: Includes Eliquis, Tylenol, pain medications, Pepcid, morphine, and Zofran. PHYSICAL EXAMINATION: VITAL SIGNS: Temperature 97.8, pulse 60, respirations 18, BP 148/93. HEENT: No pallor, no icterus. NECK: No neck lymph nodes. HEART: S1, S2. LUNGS: Clear to auscultation. ABDOMEN: Soft. EXTREMITIES: Leg edema present. NEUROLOGIC: Alert, awake, oriented. LABORATORY DATA: White cells 6, hemoglobin 14, MCV 97, platelet 158. Potassium 4.5, creatinine 1.2, and calcium 8.8. RADIOLOGY: As above. ASSESSMENT: 1. Bilateral leg deep venous thrombosis. 2. Bilateral pulmonary embolism with cardiac changes. PLAN: The patient underwent thrombolysis by vascular team. The patient has been changed from heparin to Eliquis. The patient did not have any precipitating factors for DVT or PE. It is surprising. I will follow the patient during inpatient stay and then in the clinic setting. He would need long-term anticoagulation. I discussed with Dr. Estevez regarding the patient. The patient is on oxygen at this time. JOB# [id number] HAJA/LEANN
--- NOTE | 2019-08-31 14:05 | Cat Scan Report ---
CT ABDOMEN AND PELVIS WITH CONTRAST HISTORY: abdominal pain COMPARISON: None. TECHNIQUE: Axial CT images were obtained through the abdomen and pelvis after 100 cc of Omnipaque 300 intravenously. Sagittal and coronal reformatted images. All CT scans at this location are performed using CT dose reduction for ALARA by means of automated exposure control. FINDINGS: CT ABDOMEN: Lung Bases: Clear. Liver: No significant abnormality. Biliary: There is layering dense material in the gallbladder which could represent sludge or tiny sto shama. 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 Spleen: No significant abnormality. Unenlarged. Pancreas: No significant abnormality. Adrenals: No significant abnormality. Kidneys: No significant abnormality. Lymphatics: No lymphadenopathy. Vasculature: No significant abnormality. Bowel/Peritoneum: No significant abnormality. No free air. No free fluid. Normal appendix. CT PELVIS: : The prostate gland is mildly enlarged measuring 6.2 cm in diameter. The bladder and distal ureter s are unremarkable. Osseous Structures: Thoracolumbar spondylosis. No fracture or suspicious bony lesion. Additional Findings: There is nonspecific skin subcutaneous induration in the right groin region whic h probably represents a catheterization site. No fluid collection or pseudoaneurysm. IMPRESSION: No acute inflammatory process is identified. Sludge in the gallbladder versus vicarious excretion of contrast agent. See above. Mildly enlarged prostate gland. Signer Name: Moustapha Swain Jr, MD Signed: 08/31/2019 2:00 PM Workstation Name: [id number]
--- NOTE | 2019-08-31 14:15 | Progress Note ---
Assessment and Plan Assessment and plan: Bilateral PE with right ventricular strain - Patient was on IV heparin drip, currently on eliquis - Vascular surgery consulted and did thrombolytics, catheter removed - Hematology oncology consulted and doesn't need further workup Cardiology consulted - Echo showed dilated right ventricle Abdominal pain - will get CT with contrast - pain control Disposition; transfer to the floor. History Interval history: Patient was seen and evaluated this morning. No shortness of breath is or chest pain. patient is status post thrombolytics. patient is c/o SOB. Hospitalist Physical - Physical exam Narrative exam: Not in cardiopulmonary distress. The patient appeared well nourished and normally developed. Vital signs as documented. Head exam is unremarkable. No scleral icterus . Neck is without jugular venous distension, thyromegaly, or carotid bruits. Lungs are clear to auscultation. Cardiac exam reveals regular rate and Rhythm. First and second heart sounds normal. No murmurs, rubs or gallops. Abdominal exam reveals normal bowel sounds, no masses, no organomegaly and no aortic enlargement. Extremities are nonedematous and both femoral and pedal pulses are normal. DEPARTMENT MGR: Alert and oriented 3. No focal weakness. - Constitutional Vitals: Temp Pulse Resp BP Pulse Ox 98.0 F 72 12 174/108 86 08/31/19 12:00 08/31/19 13:00 08/31/19 13:00 08/31/19 13:00 08/31/19 13:00 General appearance: Present: no acute distress Results - Labs CBC & Chem 7: 08/31/19 04:38 08/31/19 04:38 Labs: Laboratory Last Values WBC 6.7 K/mm3 (4.5-11.0) 08/31/19 04:38 RBC 4.40 M/mm3 (3.65-5.03) 08/31/19 04:38 Hgb 14.4 gm/dl (11.8-15.2) 08/31/19 04:38 Hct 42.6 % (35.5-45.6) 08/31/19 04:38 MCV 97 fl (84-94) H 08/31/19 04:38 MCH 33 pg (28-32) H 08/31/19 04:38 MCHC 34 % (32-34) 08/31/19 04:38 RDW 12.3 % (13.2-15.2) L 08/31/19 04:38 Plt Count 158 K/mm3 (140-440) 08/31/19 04:38 Lymph % (Auto) 33.8 % (13.4-35.0) 08/31/19 04:38 [place] % (Auto) 13.5 % (0.0-7.3) H 08/31/19 04:38 Eos % (Auto) 4.4 % (0.0-4.3) H 08/31/19 04:38 Baso % (Auto) 0.5 % (0.0-1.8) 08/31/19 04:38 Lymph # 2.3 K/mm3 (1.2-5.4) 08/31/19 04:38 [place] # 0.9 K/mm3 (0.0-0.8) H 08/31/19 04:38 Eos # 0.3 K/mm3 (0.0-0.4) 08/31/19 04:38 Baso # 0.0 K/mm3 (0.0-0.1) 08/31/19 04:38 Seg Neutrophils % 47.8 % (40.0-70.0) 08/31/19 04:38 Seg Neutrophils # 3.2 K/mm3 (1.8-7.7) 08/31/19 04:38 PT 13.3 Sec. (12.2-14.9) 08/30/19 14:51 INR 1.02 (0.87-1.13) 08/30/19 14:51 APTT 39.5 Sec. (24.2-36.6) H 08/30/19 14:51 Fibrinogen 350 mg/dl (211-480) 08/30/19 05:46 Heparin Anti-Xa Level < 0.10 U.I./ml (0.3-0.7) L 08/30/19 18:40 Sodium 135 mmol/L (137-145) L 08/31/19 04:38 Potassium 4.5 mmol/L (3.6-5.0) 08/31/19 04:38 Chloride 100.6 mmol/L (98-107) 08/31/19 04:38 Carbon Dioxide 23 mmol/L (22-30) 08/31/19 04:38 Anion Gap 16 mmol/L 08/31/19 04:38 BUN 11 mg/dL (9-20) 08/31/19 04:38 Creatinine 1.2 mg/dL (0.8-1.5) 08/31/19 04:38 Estimated GFR > 60 ml/min 08/31/19 04:38 BUN/Creatinine Ratio 9 % 08/31/19 04:38 Glucose 102 mg/dL (75-100) H 08/31/19 04:38 Hemoglobin A1c 5.2 % (4-6) 08/28/19 21:50 Calcium 8.8 mg/dL (8.4-10.2) 08/31/19 04:38 Total Bilirubin 1.50 mg/dL (0.1-1.2) H 08/29/19 02:20 AST 17 units/L (5-40) 08/29/19 02:20 ALT 16 units/L (7-56) 08/29/19 02:20 Alkaline Phosphatase 83 units/L (35-129) 08/29/19 02:20 Total Creatine Kinase 235 units/L (55-170) H 08/28/19 18:06 CK-MB (CK-2) 4.0 ng/mL (0.0-4.0) 08/28/19 18:06 CK-MB (CK-2) Rel Index 1.7 (0-4) 08/28/19 18:06 Troponin T 0.012 ng/mL (0.00-0.029) 08/28/19 18:06 NT-Pro-B Natriuret Pep 3204 pg/mL (0-900) H 08/28/19 18:06 Total Protein 7.4 g/dL (6.3-8.2) 08/29/19 02:20 Albumin 3.9 g/dL (3.9-5) 08/29/19 02:20 Albumin/Globulin Ratio 1.1 % 08/29/19 02:20 Active Medications - Current Medications Current Medications: Generic Name Dose Route Start Last Admin Trade Name Freq PRN Reason Stop Dose Admin Acetaminophen 650 mg 08/28/19 21:31 Tylenol PO Q4H PRN Pain MILD(1-3)/Fever >100.5/STRAUSS Acetaminophen/Hydrocodone Bitart 2 each 08/29/19 12:52 [place] 5/325 PO Q6H PRN Pain, Moderate (4-6) Albuterol 2.5 mg 08/28/19 22:05 Proventil IH Q3HRT PRN Shortness Of Breath Apixaban 10 mg 08/30/19 22:00 08/31/19 09:46 Eliquis PO 09/06/19 21:59 10 mg Q12HR CAROLYN Administration Protocol Apixaban 5 mg 09/07/19 10:00 Eliquis PO Q12HR CAROLYN Protocol Famotidine 20 mg 08/31/19 10:00 08/31/19 09:46 Pepcid PO 20 mg BID CAROLYN Administration Morphine Sulfate 4 mg 08/29/19 12:52 08/31/19 03:58 Morphine IV 4 mg Q4H PRN Administration Pain , Severe (7-10) Morphine Sulfate 2 mg 08/29/19 12:52 08/30/19 15:56 Morphine IV 2 mg Q4H PRN Administration Pain, Moderate (4-6) Ondansetron HCl 4 mg 08/29/19 12:52 Zofran IV Q8H PRN Nausea And Vomiting Polyethylene Glycol 17 gm 08/31/19 22:00 Miralax 3350 PO QDAY CAROLYN Sodium Chloride 10 ml 08/28/19 22:00 08/31/19 09:47 Sodium Chloride Flush Syringe 10 Ml IV 10 ml BID CAROLYN Administration Sodium Chloride 10 ml 08/28/19 21:31 Sodium Chloride Flush Syringe 10 Ml IV PRN PRN LINE FLUSH
[2019-08-31] MEDS: POLYETHYLENE GLYCOL 3350 17 GM POWDER PO SCH (21:52)
[2019-09-01 06:11] LABS: BUN/Creatinine Ratio 8; Blood Urea Nitrogen 11 mg/dL (9-20); Calcium 9.1 mg/dL (8.4-10.2); Hemolysis Index 19
[2019-09-01 07:22] VITALS: BP 135/87
--- NOTE | 2019-09-01 08:23 | Discharge Summary ---
Providers - Providers Date of Admission: 08/28/19 19:54 Date of discharge: 09/01/19 Attending physician: SARAH DIETZ MD 08/28/19 19:48 Consult to Physician [CONS] Urgent Comment: Consulting Provider: DIANE JOY Physician Instructions: Reason For Exam: chest pain, PEs 08/28/19 21:31 Consult to Physician [CONS] Routine Comment: Consulting Provider: SHAINA MICHEL Physician Instructions: Reason For Exam: Acute PE 08/28/19 21:34 Consult to Physician [CONS] Routine Comment: Consulting Provider: JULISSA TIJERINA Physician Instructions: Reason For Exam: Acute PE 08/30/19 12:05 Physical Therapy Evaluation and Treat [CONS] Routine Comment: Reason For Exam: mobility 08/31/19 07:53 Consult to Physician [CONS] Routine Comment: Consulting Provider: ROLANDO ODONNELL Physician Instructions: Reason For Exam: bilateral PE and DVT Primary care physician: BERNARD GOOD Hospitalization Reason for admission: Bilateral PE, bilteral LE DVT Condition: Serious Pertinent studies: CTA chest Doppler LE CT abdomen and pelvis with contrast Hospital course: 59-year-old -Citizen Of [place] male was presented to the emergency department complaining of shortness of breath. Workup in the emergency department showed the patient has submassive bilateral PE. Vascular surgery was consulted and they did EKOS. Patient was placed on heparin drip. Doppler ultrasound showed bilateral lower extremity DVT. Hematology oncology consulted and did recommend to continue eliquis. No further workup is needed. Patient is hemodynamically stable at the time of discharge. Appropriate medications glipizide given at the time of discharge. Advised the need to follow-up with primary care physician for refill of his medications and further care. Disposition: SD-01 TO HOME OR SELFCARE Time spent for discharge: 32 minutes - Discharge Diagnoses (1) DVT of lower extremity, bilateral Status: Acute (2) Bilateral pulmonary embolism Status: Acute (3) Dyspnea on exertion Status: Acute Core Measure Documentation - Palliative Care Palliative Care/ Comfort Measures: Not Applicable - Core Measures Any of the following diagnoses?: DVT/PE - VTE Discharge Requirements Deep Vein Thrombosis/Pulmonary Embolism Present on Admission: Yes Has pt received <5 days of overlap therapy or INR<2.0: Yes Anticoagulant overlap therapy prescribed at discharge: No Contraindication No Overlap Therapy order at DC: Not Indicated Exam - Physical Exam Narrative exam: Not in cardiopulmonary distress. The patient appeared well nourished and normally developed. Vital signs as documented. Head exam is unremarkable. No scleral icterus . Neck is without jugular venous distension, thyromegaly, or carotid bruits. Lungs are clear to auscultation. Cardiac exam reveals regular rate and Rhythm. First and second heart sounds normal. No murmurs, rubs or gallops. Abdominal exam reveals normal bowel sounds, no masses, no organomegaly and no aortic enlargement. Extremities are nonedematous and both femoral and pedal pulses are normal. CHIEF RADIATION THERAPIST: Alert and oriented 3. No focal weakness. - Constitutional Vitals: Temp Pulse Resp BP Pulse Ox 32.1 F L 59 L 18 135/87 97 09/01/19 06:39 09/01/19 06:39 09/01/19 06:39 09/01/19 06:39 09/01/19 06:39 Plan Activity: no restrictions Weight Bearing Status: Full Weight Bearing Diet: regular Follow up with: BERNARD GOOD MD [Primary Care Provider] - 7 Days Prescriptions: Apixaban [Eliquis] 5 mg PO Q12HR #70 tablet Polyethylene Glycol 3350 [Miralax 3350] 17 gm PO QDAY PRN #20 powd.pack PRN Reason: Constipation
[2019-09-01] MEDS: FAMOTIDINE 20 MG TAB PO SCH (09:54)
[2019-09-01] MEDS: APIXABAN 5 MG TAB PO SCH (09:55)
[2019-09-01] MEDS: POLYETHYLENE GLYCOL 3350 17 GM POWDER PO SCH (09:55)
[2019-09-07] MEDS ORDERED: APIXABAN 5 MG TAB PO SCH (10:00)
== END 2019-09-01 10:45 | disposition home or self-care (01) | DRG 299 ==
LOC: ED 17:10 → CC1 19:54 → 3A 08-31 13:51
PROVIDERS: ADMIT Internal Medicine; ATTEND Internal Medicine
PROC: 02HQ33Z Insertion of Infusion Device into Right Pulmonary Artery, Percutaneous Approach (ICD-10-PCS; principal; 2019-08-29)
PROC: 02HR33Z Insertion of Infusion Device into Left Pulmonary Artery, Percutaneous Approach (ICD-10-PCS; 2019-08-29)
PROC: B54BZZA Ultrasonography of Right Lower Extremity Veins, Guidance (ICD-10-PCS; 2019-08-29)
PROC: B31T1ZZ Fluoroscopy of Left Pulmonary Artery using Low Osmolar Contrast (ICD-10-PCS; 2019-08-29)
PROC: B31S1ZZ Fluoroscopy of Right Pulmonary Artery using Low Osmolar Contrast (ICD-10-PCS; 2019-08-29)
PROC: B5191ZZ Fluoroscopy of Inferior Vena Cava using Low Osmolar Contrast (ICD-10-PCS; 2019-08-29)
PROC: 3E06317 Introduction of Other Thrombolytic into Central Artery, Percutaneous Approach (ICD-10-PCS; 2019-08-29)
PROC: B31T1ZZ Fluoroscopy of Left Pulmonary Artery using Low Osmolar Contrast (ICD-10-PCS; 2019-08-30)
PROC: B31S1ZZ Fluoroscopy of Right Pulmonary Artery using Low Osmolar Contrast (ICD-10-PCS; 2019-08-30)
PROC: 02PYX3Z Removal of Infusion Device from Great Vessel, External Approach (ICD-10-PCS; 2019-08-30)
DX: I82.4Z3 Acute embolism and thrombosis of unspecified deep veins of distal lower extremity, bilateral (principal); I26.99 Other pulmonary embolism without acute cor pulmonale; J44.9 Chronic obstructive pulmonary disease, unspecified; G47.30 Sleep apnea, unspecified; Z72.89 Other problems related to lifestyle; Z82.49 Family history of ischemic heart disease and other diseases of the circulatory system
CPT/HCPCS: 36415; 37211; 37214; 71275; 74018; 74177; 76937; 80048; 80053; 82550; 82553; 83036; 83880; 84484; 85014; 85018; 85025; 85049; 85384; 85520; 85610; 85730; 93005; 93010; 93970; 94760; G0378; C1751; C1757; C1769; C1894; J1644; J2250; J2270; J2997; J3010; J7030; J7040; J7050; Q9967

== ENCOUNTER 2019-09-19 04:00 | Emergency (ER) | payer SELFPAY ==
[2019-09-19 04:09] VITALS: BP 151/93
[2019-09-19 04:44] LABS: Basophils % (Auto) 0.3 % (0.0-1.8); Eosinophils # (Auto) 0.3 K/mm3 (0.0-0.4); Eosinophils % (Auto) 3.5 % (0.0-4.3); Hematocrit 42.5 % (35.5-45.6); Hemoglobin 14.4 gm/dl (11.8-15.2); Lymphocytes # (Auto) 2.9 K/mm3 (1.2-5.4); Lymphocytes % (Auto) 38.1 % (13.4-35.0); Mean Corpuscular HGB Conc 34 % (32-34); Mean Corpuscular Volume 98 fl (84-94); Monocytes # (Auto) 0.9 K/mm3 (0.0-0.8); Monocytes % (Auto) 12.4 % (0.0-7.3); Platelet Count 237 K/mm3 (140-440); Red Blood Count 4.33 M/mm3 (3.65-5.03); Red Cell Distribution Width 12.9 % (13.2-15.2)
[2019-09-19 04:53] LABS: INR 1.11 (0.87-1.13)
--- NOTE | 2019-09-19 04:53 | XRay Report ---
CHEST 1 VIEW, 09/19/2019 4:36 AM CLINICAL INFORMATION/INDICATION: Chest pain COMPARISON: None FINDINGS: SUPPORT DEVICES: None. HEART: Cardiac silhouette and pulmonary vascularity are within normal limits. LUNGS/PLEURA: The lungs are clear of focal airspace disease or significant pleural effusion. ADDITIONAL FINDINGS: No additional acute findings. IMPRESSION: 1. No evidence of acute cardiopulmonary process. Signer Name: Adrienne Hubbard MD Signed: 09/19/2019 4:49 AM Workstation Name: [id number]
[2019-09-19 05:09] LABS: BUN/Creatinine Ratio 11; Blood Urea Nitrogen 17 mg/dL (9-20); Calcium 9.5 mg/dL (8.4-10.2); Hemolysis Index 11
--- NOTE | 2019-09-19 06:21 | Emergency Department Report ---
ED Chest Pain HPI - General Chief Complaint: Chest Pain Stated Complaint: CHEST PAIN Time Seen by Provider: 09/19/19 06:09 Source: patient Mode of arrival: Ambulatory Limitations: No Limitations - History of Present Illness Initial Comments: 59-year-old male states "I got anxious last night". He states he had some burning in his anterior chest for about a half an hour. It was nonpleuritic and nonradiating. He had no cough no shortness of breath. He began to get more concerned when he had some right leg pain. However there was no swelling. At the time of my exam, he is resting comfortably. He is not complaining of chest pain leg pain nor anxiety. His heart rate is normal as pulse oximetry is 100% on room air. He does state he had very different symptoms as severe shortness of breath with his pulmonary embolism. The patient has had a hospitalization for submassive PE as below indicated. He is very compliant with his health clicks. He took 10 mg twice a day for 5 days and now he is on 15 mg tablet twice a day. He has been following up with several physicians he states. Recent discharge summary: Hospitalization Reason for admission: Bilateral PE, bilteral LE DVT Condition: Serious Pertinent studies: CTA chest Doppler LE CT abdomen and pelvis with contrast Hospital course: 59-year-old -[place] male was presented to the emergency department complaining of shortness of breath. Workup in the emergency department showed the patient has submassive bilateral PE. Vascular surgery was consulted and the y did EKOS. Patient was placed on heparin drip. Doppler ultrasound showed bilateral lower extremity DVT. Hematology oncology consulted and did recommend to continue eliquis. No further workup is needed. Patient is hemodynamically stable at the time of discharge. Appropriate medications glipizide given at the time of discharge. Advised the need to follow-up with primary care physician for refill of his medications and further care. Disposition: [id number] TO HOME OR SELFCARE Time spent for discharge: 32 minutes - Discharge Diagnoses (1) DVT of lower extremity, bilateral Status: Acute (2) Bilateral pulmonary embolism Status: Acute (3) Dyspnea on exertion Status: Acute MD Complaint: chest pain -: Gradual Onset: during rest Pain Location: substernal Pain Radiation: none Severity: mild Quality: other (burning) - Related Data Previous Rx's Medication Instructions Recorded Last Taken Type Apixaban [Eliquis] 5 mg PO Q12HR #70 tablet 09/01/19 Unknown Rx Polyethylene Glycol 3350 [Miralax 17 gm PO QDAY PRN #20 powd.pack 09/01/19 Unknown Rx 3350] Allergies Allergy/AdvReac Type Severity Reaction Status Date / Time No Known Allergies Allergy Verified 08/29/19 09:35 Heart Score - HEART Score History: Slightly suspicious EKG: Normal Age: 45-65 Risk factors: 1-2 risk factors Troponin: < normal limit HEART Score: 2 - Critical Actions Critical Actions: 0-3 pts:0.9-1.7%risk of adverse cardiac event.Candidate for discharge ED Review of Systems ROS: Stated complaint: CHEST PAIN Other details as noted in HPI Constitutional: denies: chills, fever Eyes: denies: eye pain, eye discharge, vision change ENT: denies: ear pain, throat pain Respiratory: denies: cough, shortness of breath, wheezing Cardiovascular: chest pain. denies: palpitations Endocrine: no symptoms reported Gastrointestinal: denies: abdominal pain, nausea, diarrhea Genitourinary: denies: urgency, dysuria Musculoskeletal: as per HPI. denies: back pain, joint swelling, arthralgia Skin: denies: rash, lesions Neurological: denies: headache, weakness, paresthesias Psychiatric: denies: anxiety, depression Hematological/Lymphatic: denies: easy bleeding, easy bruising ED Past Medical Hx - Past Medical History Previous Medical History?: Yes Hx Congestive Heart Failure: No Hx Diabetes: No Hx Deep Vein Thrombosis: Yes Hx Pulmonary Embolism: Yes Hx Asthma: No Hx COPD: Yes Additional medical history: Sleep apnea - Surgical History Past Surgical History?: Yes Additional Surgical History: Hemorrhoidectomy, tonsilectomy, vasectomy - Social History Smoking Status: Never Smoker Substance Use Type: None - Medications Home Medications: Home Medications Medication Instructions Recorded Confirmed Last Taken Type Apixaban [Eliquis] 5 mg PO Q12HR #70 tablet 09/01/19 Unknown Rx Polyethylene Glycol 3350 [Miralax 17 gm PO QDAY PRN #20 powd.pack 09/01/19 Unknown Rx 3350] ED Physical Exam - General Limitations: No Limitations General appearance: alert, in no apparent distress - Head Head exam: Present: atraumatic, normocephalic - Eye Eye exam: Present: normal appearance. Absent: scleral icterus - ENT ENT exam: Present: mucous membranes moist - Neck Neck exam: Present: normal inspection - Respiratory Respiratory exam: Present: normal lung sounds bilaterally. Absent: respiratory distress - Cardiovascular Cardiovascular Exam: Present: regular rate, normal rhythm. Absent: systolic murmur, diastolic murmur, rubs, gallop - GI/Abdominal GI/Abdominal exam: Present: soft, normal bowel sounds. Absent: distended, tenderness, guarding, rebound, rigid - Rectal Rectal exam: Present: deferred - Extremities Exam Extremities exam: Present: normal inspection, full ROM, normal capillary refill. Absent: tenderness, pedal edema, joint swelling, calf tenderness - Back Exam Back exam: Present: normal inspection - Neurological Exam Neurological exam: Present: alert, oriented X3, CN II-XII intact. Absent: motor sensory deficit - Psychiatric Psychiatric exam: Present: normal affect, normal mood - Skin Skin exam: Present: warm, dry, intact, normal color. Absent: rash ED Course Vital Signs 09/19/19 04:04 Temperature 98.2 F Pulse Rate 73 Respiratory 18 Rate Blood Pressure 151/93 O2 Sat by Pulse 96 Oximetry LORRI score - Lorri Score Age > 65: (0) No Aspirin use within the Past 7 Days: (0) No 3 or more CAD Risk Factors: (0) No 2 or more Angina events in past 24 hrs: (0) No Known CAD with more than 50% Stenosis: (0) No Elevated Cardiac Markers: (0) No ST Deviation Greater than 0.5mm: (0) No LORRI Score: 0 ED Medical Decision Making - Lab Data Result diagrams: 09/19/19 04:24 09/19/19 04:24 Laboratory Results - last 24 hr 09/19/19 09/19/19 09/19/19 04:24 04:24 04:24 WBC 7.5 RBC 4.33 Hgb 14.4 Hct 42.5 MCV 98 H MCH 33 H MCHC 34 RDW 12.9 L Plt Count 237 Lymph % (Auto) 38.1 H [place] % (Auto) 12.4 H Eos % (Auto) 3.5 Baso % (Auto) 0.3 Lymph # 2.9 [place] # 0.9 H Eos # 0.3 Baso # 0.0 Seg Neutrophils % 45.7 Seg Neutrophils # 3.4 PT 14.2 INR 1.11 D-Dimer 135.00 Sodium 142 Potassium 4.3 Chloride 103.1 Carbon Dioxide 24 Anion Gap 19 BUN 17 Creatinine 1.5 Estimated GFR 58 BUN/Creatinine Ratio 11 Glucose 104 H Calcium 9.5 Troponin T < 0.010 - EKG Data -: EKG Interpreted by Me EKG shows normal: sinus rhythm, axis (left axis deviation), intervals, QRS complexes, ST-T waves Rate: normal - EKG Data Interpretation: no acute changes - Radiology Data Radiology results: report reviewed (chest x-ray NAP) Critical care attestation.: If time is entered above; I have spent that time in minutes in the direct care of this critically ill patient, excluding procedure time. ED Disposition Clinical Impression: Atypical chest pain, Anxiety, History of venous thromboembolism Disposition: - TO HOME OR SELFCARE Is pt being admited?: No Does the pt Need Aspirin: No Condition: Stable Instructions: Chest Pain (ED), Pulmonary Embolism (GEN), Deep Venous Thrombosis (ED) Additional Instructions: Continue your Eliquis and medical follow-up. Return any recurrent chest pain or leg pain. Definitely return if you have any shortness of breath. Time of Disposition: 06:52
== END 2019-09-19 07:01 | disposition home or self-care (01) ==
LOC: ED 04:00
DX: R07.89 Other chest pain (principal); I82.890 Acute embolism and thrombosis of other specified veins; J44.9 Chronic obstructive pulmonary disease, unspecified; Z86.718 Personal history of other venous thrombosis and embolism; Z98.890 Other specified postprocedural states; Z79.899 Other long term (current) drug therapy
CPT/HCPCS: 36415; 71045; 80048; 84484; 85025; 85379; 85610; 93005; 93010